=== PATIENT | male | born 1950 | race Caucasian/White ===

== ENCOUNTER → 2016-09-20 | Outpatient (CLI) | payer BC ==
[2016-09-20 17:52] LABS: CH 30.9; CHCM 35.1; HDW 2.74; HGB 15.8 gm/dL (13.0-17.5); MCV 88.4 fL (80.0-100.0); Mean Platelet Volume 7.3; RBC 5.09 m/uL (4.30-5.90); RDW 13.3 % (11.5-15.5); WBC 14.5 k/uL (3.8-10.6)
[2016-09-20 18:08] LABS: Anion Gap 12 mmol/L; Blood Urea Nitrogen 18 mg/dL (9-20); Carbon Dioxide 29 mmol/L (22-30); Chloride 102 mmol/L (98-107); Non-African American GFR(MDRD) >60 (>60 ml/min/1.73 sqM); Potassium 3.9 mmol/L (3.5-5.1); Sodium 143 mmol/L (137-145)
== END | disposition home or self-care (01) ==
LOC: LABPAT 17:22
PROVIDERS: ATTEND Internal Medicine Interventional Cardiology
DX: Z01.812 Encounter for preprocedural laboratory examination (principal); R07.9 Chest pain, unspecified
CPT/HCPCS: 80051; 82565; 84520; 85027

== ENCOUNTER 2016-09-22 09:33 | Day surgery (SDC) | payer BC ==
[2016-09-17 14:55] VITALS: BMI 30.9
[~2016-09-22 09:33] MED LIST: ALPRAZolam 0.25 MG TAB PO PRN; ALPRAZolam 0.5 MG TAB PO PRN; ASPIRIN 325 MG TAB PO STA; ATORVASTATIN 80 MG TAB PO STA; NITROGLYCERIN SL TABS 0.4 MG TAB SUBLINGUAL PRN; SODIUM CHLORIDE 0.9% 1,000 ML in EMPTY BAG 1 BAG IV ONE
[2016-09-22 10:11] VITALS: RESP 16; TEMP 98.1
[2016-09-22] MEDS ORDERED: VERAPAMIL 2.5 MG/ML 2 ML AMP ONE (10:38)
[2016-09-22] MEDS ORDERED: SODIUM CHLORIDE 0.9% (PF) 10 ML VIAL ONE (10:38)
[2016-09-22] MEDS ORDERED: LIDOCAINE 2% INJ 20 MG/ML (20 ML MDV) ONE (10:38)
[2016-09-22] MEDS ORDERED: HEPARIN SODIUM 1,000 UNIT/ML VIAL ONE (10:39)
[2016-09-22] MEDS ORDERED: MIDAZOLAM 2 MG/2 ML VIAL IV ONE (12:55)
[2016-09-22] MEDS ORDERED: LIDOCAINE 2% INJ 20 MG/ML SQ ONE (12:57)
[2016-09-22] MEDS: VERAPAMIL SYRINGE (5 MG/10 ML) INTRAARTER ONE ×2 (12:58→13:15)
[2016-09-22] MEDS ORDERED: HEPARIN SODIUM 1,000 UNIT/ML VIAL IV ONE (13:01)
[2016-09-22] MEDS ORDERED: IOHEXOL 350 MG/ML 100 ML BOTTLE INTRATHECA ONE (13:13)
[2016-09-22] MEDS ORDERED: RX INFO: IV CONTRAST WAS GIVEN 1 EACH MISC MISCELLANE PRN (13:24)
[2016-09-22] MEDS ORDERED: SODIUM CHLORIDE 0.9% 1,000 ML IV SCH (13:30)
--- NOTE | 2016-09-22 13:42 | CC ---
DATE OF SERVICE: 09/22/2016 PERFORMING PHYSICIAN: Jaime Cassidy, Hospital Cleaner. PROCEDURE PERFORMED: 1. Selective right and left coronary angiogram. 2. Left heart catheterization. INDICATION: This is a pleasant 66-year-old gentleman who was experiencing classical symptoms of angina. The decision was made toward heart catheterization. APPROACH: Right radial artery. COMPLICATIONS: None. LEVEL OF SEDATION: Moderate with a sedation length of 30 minutes. PROCEDURE DESCRIPTION: After obtaining an informed consent, the patient was brought to the Cardiac Rn Hemodialysis. Right radial artery was cannulated using micropuncture technique. The micropuncture wire passed easily, then I placed 6 Slovenian sheath in the right radial artery. Subsequently, I did selective right and left coronary angiogram using JR4 and JL 3.5 catheters. I did after that left heart catheterization using 6 Slovenian pigtail catheter. The procedure was completed without any complication. SELECTIVE CORONARY ANGIOGRAM: 1. The right coronary artery is a large-caliber vessel and it is a dominant vessel. It is angiographically normal and bifurcates distally into PDA and PLV branches; both are angiographically normal. 2. The left main is angiographically normal, it bifurcates into the left circumflex and left anterior descending artery. 3. The left circumflex is a large-caliber vessel and it is a nondominant vessel. The proximal left circumflex is angiographically normal and gives rise into the first OM branch, which is a large-caliber vessel, seems to be angiographically normal. The left circumflex continues after that as a small-caliber vessel in the AV groove. 4. Left anterior descending artery. The proximal left anterior descending artery is angiographically normal and gives rises into 2 diagonal branches; both are angiographically normally. The mid LAD is normal and ( ) in the myocardium. The LAD distally, seems to be angiographically normal. CONCLUSION: 1. Normal coronary angiogram. 2. Dominant right coronary system. Postprocedure management will be medical treatment.
--- NOTE | 2016-09-22 13:44 | LTR ---
September 22, 2016 RE: Reilly Salcido Dear Jason; Mr. Reilly Salcido underwent a heart catheterization today and that showed normal coronaries. I want to thank you for allowing me to participate in his care and please do not hesitate to call if you have any question or concern. Sincerely, LINDA FREY MD
[2016-09-22] MEDS ORDERED: hydrALAZINE HCL 20 MG/ML 1 ML VIAL ONE (14:07)
[2016-09-22] MEDS ORDERED: hydrALAZINE HCL 20 MG/ML 1 ML VIAL IVP STA (14:17)
[2016-09-22] MEDS ORDERED: CARVEDILOL 6.25 MG TAB PO STA (14:18)
[2016-09-22 16:51] VITALS: BP 145/84; PULSE 68
== END 2016-09-22 16:52 | disposition home or self-care (01) ==
LOC: CATHCVL 09:33
PROVIDERS: ATTEND Internal Medicine Interventional Cardiology
DX: R07.89 Other chest pain (principal); I10 Essential (primary) hypertension; E78.5 Hyperlipidemia, unspecified; Z79.899 Other long term (current) drug therapy
CPT/HCPCS: 93458; 99152; 99153; C1769 ×2; C1894; J2001; J2250; J0360; Q9967; J1644

== ENCOUNTER → 2017-06-04 | Outpatient (CLI) | payer MEDICARE | LOC: LABPAT 10:05 | PROVIDERS: ATTEND Surgery | DX: Z01.818 Encounter for other preprocedural examination (principal) | CPT/HCPCS: 36415; 86850; 86900; 86901; 93005 ==

== ENCOUNTER 2017-06-07 06:04 | Day surgery (SDC) | payer MEDICARE ==
[~2017-06-07 06:04] MED LIST changes: -ALPRAZolam 0.25 MG TAB PO PRN; -ALPRAZolam 0.5 MG TAB PO PRN; -ASPIRIN 325 MG TAB PO STA; -ATORVASTATIN 80 MG TAB PO STA; +DEXAMETHASONE SOD PHOSPHATE 10 MG/ML 1 ML VIAL IV ONE; +HEPARIN SODIUM,PORCINE 5,000 UNIT/ML 1 ML VIAL SQ ONE; +LACTATED RINGERS 1,000 ML IV SCH; +MIDAZOLAM 2 MG/2 ML VIAL IV PRN; -NITROGLYCERIN SL TABS 0.4 MG TAB SUBLINGUAL PRN; +ONDANSETRON 4 MG/2 ML VIAL IVP ONE; -SODIUM CHLORIDE 0.9% 1,000 ML in EMPTY BAG 1 BAG IV ONE; +ceFAZolin IN SWFI 2 GM/20 ML SYRINGE IVP ONE
[2017-06-07] MEDS ORDERED: LIDOCAINE 1% 20 ML VIAL (10MG/ML) FOR IV START INTRADERMA ONE (06:44)
--- NOTE | 2017-06-07 07:53 | P.GSHP ---
History of Present Illness H&P Date: 06/07/17 Chief Complaint: Incarcerated umbilical hernia This is a 67-year-old male referred from Dr. Jason Andrew. Patient has complaints of umbilical mass. He was seen [facility] found have incarcerated umbilical hernia. Past Medical History Past Medical History: Chest Pain / Angina, GERD/Reflux, Hyperlipidemia, Hypertension Additional Past Medical History / Comment(s): Sarcoidosis (IN REMISSION). "sometimes hard to urinate" History of Any Multi-Drug Resistant Organisms: None Reported Past Surgical History: Heart Catheterization Additional Past Surgical History / Comment(s): 09/22/16 HEART CATH (NEG).pain injections Past Anesthesia/Blood Transfusion Reactions: No Reported Reaction Additional Past Anesthesia/Blood Transfusion Reaction / Comment(s): never has had blood transfusion. NO GENERAL ANESTHESIA. Past Psychological History: No Psychological Hx Reported Smoking Status: Never smoker Past Alcohol Use History: Occasional Past Drug Use History: None Reported - Past Family History Mother Family Medical History: CVA/TIA, Hypertension Father Family Medical History: CVA/TIA, Hypertension Medications and Allergies Home Medications Medication Instructions Recorded Confirmed Type Atorvastatin Calcium [Lipitor] 10 mg PO DAILY 09/17/16 06/07/17 History Carvedilol [Coreg] 6.25 mg PO BID 09/17/16 06/07/17 History Omeprazole 40 mg PO DAILY PRN 09/17/16 06/07/17 History Pramipexole Di-HCl [Mirapex] 2 mg PO HS 09/17/16 06/07/17 History Tamsulosin HCl [Flomax] 0.4 mg PO DAILY 09/17/16 06/07/17 History Zolpidem [Ambien] 10 mg PO HS 09/17/16 06/07/17 History amLODIPine [Norvasc] 10 mg PO QAM 09/17/16 06/07/17 History Ibuprofen [Motrin] 800 mg PO Q8HR PRN 09/22/16 06/07/17 History Allergies Allergy/AdvReac Type Severity Reaction Status Date / Time azathioprine [From Imuran] Allergy shakiness Verified 06/07/17 06:38 Surgical - Exam Vital Signs Temp Pulse Resp BP Pulse Ox 97.1 F L 50 L 16 140/81 100 06/07/17 06:44 06/07/17 06:44 06/07/17 06:44 06/07/17 06:44 06/07/17 06:44 - General well developed, no distress - Eyes PERRL - ENT normal pinna - Neck no masses - Respiratory normal expansion - Cardiovascular Rhythm: regular - Abdomen Abdomen: soft, non tender Hernia: umbilical (5 cm incarcerated umbilical hernia) Assessment and Plan Assessment: Incarcerated umbilical hernia. We'll perform laparoscopic robotic system repair.
[2017-06-07] MEDS ORDERED: NEOSTIGMINE 1 MG/ML 10 ML VIAL ONE (07:57)
[2017-06-07] MEDS ORDERED: ROCURONIUM BROMIDE 10 MG/ML 10 ML VIAL IV ONE (07:57)
[2017-06-07] MEDS ORDERED: DEXAMETHASONE SOD PHOS (MDV) 100 MG/10 ML VIAL ONE (07:57)
[2017-06-07] MEDS ORDERED: PROPOFOL 10 MG/ML 20 ML VIAL IV ONE (07:57)
[2017-06-07] MEDS ORDERED: KETAMINE 10 MG/ML 20 ML VIAL ONE (07:57)
[2017-06-07] MEDS ORDERED: fentaNYL (PF) 50 MCG/ML 2 ML AMP ONE (07:57)
[2017-06-07] MEDS ORDERED: MIDAZOLAM 2 MG/2 ML VIAL ONE (07:57)
[2017-06-07] MEDS ORDERED: LIDOCAINE 1% INJ 10MG/ML (20 ML MDV) ONE (07:57)
[2017-06-07] MEDS ORDERED: SUCCINYLCHOLINE CHLORIDE 100 MG/5 ML SYR IV ONE (07:57)
[2017-06-07] MEDS ORDERED: GLYCOPYRROLATE 0.2 MG/ML 2 ML VIAL ONE (07:57)
[2017-06-07] MEDS ORDERED: KETOROLAC 30 MG/ML 1 ML VIAL ONE (07:57)
[2017-06-07] MEDS ORDERED: BUPIVACAINE-EPI 0.5%-1:200,000 10 ML VIAL SQ ONE ×2 (08:37)
[2017-06-07] MEDS ORDERED: LACTATED RINGERS 1,000 ML IV ONE ×2 (08:50→10:37)
--- NOTE | 2017-06-07 09:23 | P.OP ---
Date of Procedure: 06/07/17 Preoperative Diagnosis: Incarcerated umbilical hernia Postoperative Diagnosis: Incarcerated umbilical hernia Procedure(s) Performed: Laparoscopic robotic system repair of incarcerated umbilical hernia Anesthesia: SACHA Surgeon: Girma Mars Estimated Blood Loss (ml): 5 Pathology: other (Incarcerated fat) Condition: stable Disposition: PACU Description of Procedure: The patient's placed on the operative table in the supine position. He received general anesthesia. His abdomen was prepped and draped usual sterile fashion. The skin was incised left upper quadrant using a optical 5 mm blade less trocar under direct vision the peritoneal cavity is entered. After adequate insufflation a lap scope placed back the pleural cavity. Next a 8 mm robotic trochars placed in the left lower quadrant and a 12 mm trocar is placed in the left lateral position. The original 5 mm trocar was exchanged for an 8 mm trocar. The patient's placed left side up position the patient was then docked to the robot. The hernia was visualized. There was incarcerated fat within the hernia. The incarcerated fat was dissected free using hook cautery. The fascial defect was then closed using oh the lock suture. Next the repair was buttressed with ventral light ST mesh. This was secured with 2 OV lock suture. The patient was undocked the robot. The needles were withdrawn. The 12 mm trocar site was closed using a Eduardo Harvey suture passer and then the skin was closed interrupted 3-0 Monocryl suture. Dermabond was applied. Patient was sent to recovery and solution.
[2017-06-07 09:27] VITALS: TEMP 98.2
[2017-06-07] MEDS: HYDROmorphone 0.5 MG/0.5 ML SYRINGE IVP PRN ×2 (10:14→10:20)
[2017-06-07] MEDS ORDERED: HYDROcodone/APAP 7.5-325MG 1 EACH TAB PO ONE (10:28)
[2017-06-07 11:34] VITALS: BP 119/71; PULSE 56; RESP 18
== END 2017-06-07 11:48 | disposition home or self-care (01) ==
LOC: OR 06:04
PROVIDERS: ATTEND Surgery
DX: K42.0 Umbilical hernia with obstruction, without gangrene (principal); K21.9 Gastro-esophageal reflux disease without esophagitis; I10 Essential (primary) hypertension; E78.5 Hyperlipidemia, unspecified; I25.10 Atherosclerotic heart disease of native coronary artery without angina pectoris; D86.9 Sarcoidosis, unspecified; Z88.8 Allergy status to other drugs, medicaments and biological substances; Z79.899 Other long term (current) drug therapy; Z82.49 Family history of ischemic heart disease and other diseases of the circulatory system; Z82.3 Family history of stroke
CPT/HCPCS: 49653; 86900; 86901; 86850; 36415; C1781; J2250; J1644; J1100 ×2; J2710; J0690; J2405; J2001; J3010; J1885; J0330; J2704; J1170; 88302

== ENCOUNTER → 2017-09-08 | Outpatient (CLI) | payer MEDICARE ==
[2017-09-08 08:51] LABS: Cholesterol 197 mg/dL (<200); HDL Cholesterol 39 mg/dL (40-60); LDL Cholesterol,Calculated 122 mg/dL (0-99); Triglycerides 181 mg/dL (<150)
== END | disposition home or self-care (01) ==
LOC: LABWHC1 07:56
PROVIDERS: ATTEND Internal Medicine Interventional Cardiology
DX: E78.5 Hyperlipidemia, unspecified (principal)
CPT/HCPCS: 36415; 80061

== ENCOUNTER → 2018-02-23 | Outpatient (CLI) | payer MEDICARE ==
--- NOTE | 2018-02-23 11:47 | CONS ---
CONSULTATION DATE OF SERVICE: 02/23/2018 A 67-year-old gentleman who has been evaluated in the sleep center for possible obstructive sleep apnea-hypopnea syndrome. HISTORY OF PRESENT ILLNESS, SLEEP/WAKE EVALUATION: Patient usual sleep schedule from 11 p.m. to 6 a.m. He does have problems with falling asleep, taking sleeping pills at bedtime. He has has TV set in bedroom. He sleeps in different position by himself for the last 4 years. Previously, he has been told about snoring. At present he wakes up from sleep with nocturia 2 times. He has restless leg symptoms and possibly some movements at night. He is also on medications for restless legs. In the morning he wakes up tired, has problems with memory, concentration. [place] Sleepiness Scale significantly increased to 13. He may take naps during the day, often known. No history of hypnagogic hallucinations, sleep paralysis or cataplexy. PAST MEDICAL HISTORY: Positive for hypertension, hyperlipidemia, sarcoidosis of both lungs. PAST SURGICAL HISTORY: Hernia repair. MEDICATIONS: Hydrochlorothiazide, amlodipine, Lipitor, Ambien 10 mg at bedtime, Mirapex 1 mg at bedtime. SOCIAL HISTORY: Negative for smoking. Alcohol consumption occasional. REVIEW OF SYSTEMS: Awakenings from sleep, tiredness, sleepiness during the day. FAMILY HISTORY: Hypertension, hyperlipidemia, arthritis, lung problems, headaches, acid reflux, restless legs. PHYSICAL EXAM: A 67-year-old gentleman without distress. BP 119/74, HR 77, RR 16, height 5, 2-1/2, weight 180.2, BMI 32.3, temperature 98.2, oxygen saturation at room air 96%. OROPHARYNX: Extremely low position of soft palate, Mallampati 4. Neck 15.5 inches in circumference. ABDOMEN: Slightly obese. EXTREMITIES: 1+ ankle edema. Neck Supple, no JVD. Thyroid is not palpable. LUNGS Clear to percussion and to auscultation. Good air exchange. No wheezing or rhonchi. HEART S1, S2 regular. No murmurs, gallops, or rubs. DIRECTOR INDUSTRIAL Awake, alert, and oriented X3. Cranial nerves 2 to 7 intact. There is no fasciculation or atrophy. noted. No focal deficits observed. IMPRESSION: 1. Snoring, awakenings from sleep with nocturia 2 times, extremely low position of soft palate, excessive daytime sleepiness. [place] Sleepiness Scale is 13. Obstructive sleep apnea-hypopnea syndrome. 2. Mild obesity, body mass index of 32. 3. Hypertension. 4. History of old sarcoidosis of the lungs. 5. Hyperlipidemia. 6. Insomnia with difficulties to initiate sleep. 7. Restless legs syndrome. 8. Possible periodic limb movements. 9. Status post hernia repair. PLAN: 1. Polysomnography for evaluation of patient's breathing during the sleep and also to check for leg movements at night. 2. CPAP/BiPAP titration if sleep study confirms obstructive sleep apnea-hypopnea syndrome. 3. Preferable position during sleep on the side. 4. No driving if patient feels any sleepiness. 5. I will see patient for follow up visit to explain results of testing and following plan. Thank you for allowing me to participate in the management of your patient. Sincerely, Aneesh Hansen MD, PhD, FAASM Diplomat of [employer] [employer] Garment Sewer Hand of [facility] [place] MMODL / IJN: [id number] /
== END | disposition home or self-care (01) ==
LOC: SLEEP 10:07
PROVIDERS: ATTEND Internal Medicine
DX: G47.33 Obstructive sleep apnea (adult) (pediatric) (principal); E66.9 Obesity, unspecified; I10 Essential (primary) hypertension; E78.5 Hyperlipidemia, unspecified; G47.00 Insomnia, unspecified; G25.81 Restless legs syndrome; D86.9 Sarcoidosis, unspecified; Z98.890 Other specified postprocedural states; Z68.32 Body mass index [BMI] 32.0-32.9, adult; Z99.89 Dependence on other enabling machines and devices; Z79.899 Other long term (current) drug therapy
CPT/HCPCS: 99211

== ENCOUNTER → 2018-04-05 | Outpatient (CLI) | payer MEDICARE | END | disposition home or self-care (01) | LOC: LABWHC1 07:33 | PROVIDERS: ATTEND Family Medicine | DX: E53.8 Deficiency of other specified B group vitamins (principal) | CPT/HCPCS: 36415; 81291; 82746 ==

== ENCOUNTER → 2018-05-03 | Outpatient (CLI) | payer MEDICARE ==
[2018-05-03 08:03] LABS: ALT 26 U/L (21-72); AST 20 U/L (17-59); Cholesterol 114 mg/dL (<200); HDL Cholesterol 38 mg/dL (40-60); LDL Cholesterol,Calculated 52 mg/dL (0-99); Triglycerides 122 mg/dL (<150)
== END ==
LOC: LABWHC1 06:34
PROVIDERS: ATTEND Internal Medicine Interventional Cardiology
DX: E78.2 Mixed hyperlipidemia (principal)
CPT/HCPCS: 36415; 80061; 84450; 84460

== ENCOUNTER → 2018-07-26 | Outpatient (CLI) | payer MEDICARE ==
--- NOTE | 2018-07-26 11:58 | SFUN ---
SLEEP CENTER FOLLOW UP NOTE DATE OF SERVICE: 07/26/2018 A 68-year-old gentleman who has been followed in the Sleep Center for treatment of obstructive sleep apnea-hypopnea syndrome. Recently patient had diagnostic polysomnogram which showed severe sleep apnea and then he had CPAP titration. Subsequently, was started on treatment with CPAP. Today is his first visit after he received his CPAP unit. Patient is able to use CPAP equipment without significant problems related to mask fitting, pressure or humidification. I checked his CPAP machine, range of the pressure 9-13 cm of water. Average pressure 11.8 cm of water. Usage is 29/30 nights with 22/30 nights for more than 4 hours. Average usage 5.1 hour, leak 8 L/minutes which is normal range. Apnea-hypopnea index was 1.6, which is absolutely normal. [place] Sleepiness Scale today is 14. MEDICATIONS: Hydrochlorothiazide, amlodipine, Lipitor, Mirapex, Ambien. PHYSICAL EXAM: Patient in no distress, BP 123/73, HR 67, RR 14, weight 194.0, temp 97.8 cm. OROPHARYNX: Extremely low position of soft palate. ABDOMEN: Slightly obese. Neck Supple, no JVD. Thyroid is not palpable. LUNGS Clear to percussion and to auscultation. Good air exchange. No wheezing or rhonchi. HEART S1, S2 regular. No murmurs, gallops, or rubs. EXTREMITIES No clubbing or cyanosis. EQUAL EMPLOYMENT OPPORTUNITY OFFICER Awake, alert, and oriented X3. Cranial nerves 2 to 7 intact. There is no fasciculation or atrophy. noted. No focal deficits observed. IMPRESSION: 1. Severe obstructive sleep apnea-hypopnea syndrome; apnea-hypopnea index 60.1 with oxygen saturation of 76% on control with CPAP with average pressure 11.8 cm of water. Patient demonstrated good compliance with treatment benefitting from treatment. 2. Hypertension. 3. Obesity. 4. History of old lung sarcoidosis. 5. Hyperlipidemia. 6. History of restless legs syndrome. 7. Status post hernia repair. PLAN: 1. Patient will continue to use CPAP equipment every night for the whole night. 2. Sleep hygiene with regular time in bed for at least 7.5 - 8 hours. 3. Losing weight. 4. No driving if feeling sleepiness. Thank you very much for allowing me to participate in the management of your patient. Sincerely, Aneesh Hansen, MD, PhD, FAASM Diplomat of [employer] Medicine Auditing Clerk of [facility] [place] [facility]. .. MMRITIKA / ERNST: [id number] /
== END | disposition home or self-care (01) ==
LOC: SLEEP 10:53
PROVIDERS: ATTEND Internal Medicine
DX: G47.33 Obstructive sleep apnea (adult) (pediatric) (principal); I10 Essential (primary) hypertension; E66.9 Obesity, unspecified; E78.5 Hyperlipidemia, unspecified; Z86.69 Personal history of other diseases of the nervous system and sense organs; Z87.09 Personal history of other diseases of the respiratory system; Z99.89 Dependence on other enabling machines and devices; Z98.890 Other specified postprocedural states; Z79.899 Other long term (current) drug therapy

== ENCOUNTER → 2018-09-12 | Outpatient (CLI) | payer MEDICARE ==
[2018-09-12 17:02] LABS: Anion Gap 9.8 mmol/L (4.00-12.00); Calcium 8.8 mg/dL (8.7-10.3); Carbon Dioxide 28.2 mmol/L (21.6-31.8); Potassium 3.8 mmol/L (3.5-5.5)
== END | disposition home or self-care (01) ==
LOC: LABWHC1 07:47
PROVIDERS: ATTEND Internal Medicine Interventional Cardiology
DX: N18.9 Chronic kidney disease, unspecified (principal)
CPT/HCPCS: 36415; 80048

== ENCOUNTER → 2019-01-25 | Outpatient (CLI) | payer MEDICARE ==
--- NOTE | 2019-01-25 11:09 | SFUN ---
SLEEP CENTER FOLLOW UP NOTE A 68-year-old gentleman who has been followed in the Sleep Center for treatment of obstructive sleep apnea-hypopnea syndrome. Last time I saw patient in July of 2018. Since that time patient used the machine every night, but for the last months developed some problem with breathing while he is using his CPAP equipment and he was not able to use machine for most of the time over the last months. [place] Sleepiness Scale today is 18. I checked CPAP unit and compared with the results of the reading from July of 2018. Range of the pressure is the same 9-13 cm of water. Average pressure 11.6. During last visit, it was 11.8. Average usage 4 hours. Leak is 10 L/minute which is normal range, last time it was 8 L/minute. Apnea-hypopnea index was only 1.7 during last is during last visit it was 1.6, so no significant changes in results of reading from the machine. Ramp is automatic, started from the pressure of 5 cm of water. EPR at the level of 3 which is maximal which really is pressure during expiration. MEDICATIONS: Hydrochlorothiazide, hydralazine, tamsulosin, Lasix, atorvastatin, Ambien, Mirapex. PHYSICAL EXAM: Patient in no distress. BP 129/76, HR 72, RR 16, height 5, 2, weight 192 pounds which is 2 pounds less than during the previous visit, temperature 98.3, oxygen saturation at room air 97%. OROPHARYNX: Extremely low soft palate. ABDOMEN: Obese. Neck Supple, no JVD. Thyroid is not palpable. LUNGS Clear to percussion and to auscultation. Good air exchange. No wheezing or rhonchi. HEART S1, S2 regular. No murmurs, gallops, or rubs. EXTREMITIES No clubbing or cyanosis. ASSISTANT PROFESSOR Awake, alert, and oriented X3. Cranial nerves 2 to 7 intact. There is no fasciculation or atrophy. noted. No focal deficits observed. IMPRESSION: 1. Severe obstructive sleep apnea-hypopnea syndrome; apnea-hypopnea index 60.1 with oxygen desaturation to 76%. Reading from the machine showed normal respiration on treatment. 2. Hypertension. 3. Obesity. 4. History of sarcoidosis of the lungs. 5. Hyperlipidemia. 6. History of restless legs syndrome. 7. Status post hernia repair. PLAN: 1. I will change ramp time to 45 minutes and I will teach patient how to just ramp time to. 2. I will decrease the range of the pressure from 7-13 instead of 9-13. 3. I will teach patient how to adjust humidity. 4. Patient to continue to use CPAP equipment every night for the whole night. 5. Losing weight. 6. No driving if feeling sleepiness. Thank you very much for allowing me to participate in the management of your patient Sincerely, Aneesh Hansen MD, PhD, FAASM Diplomat of [employer] Internal Medicine Guide Alpine of [facility] [place] MMODL / IJN: [id number] /
== END ==
LOC: SLEEP 09:50
PROVIDERS: ATTEND Internal Medicine
DX: G47.33 Obstructive sleep apnea (adult) (pediatric) (principal); I10 Essential (primary) hypertension; E66.9 Obesity, unspecified; E78.5 Hyperlipidemia, unspecified; G25.81 Restless legs syndrome; Z98.890 Other specified postprocedural states; Z99.89 Dependence on other enabling machines and devices; Z87.09 Personal history of other diseases of the respiratory system; Z79.899 Other long term (current) drug therapy

== ENCOUNTER → 2019-03-20 | Outpatient (CLI) | payer MEDICARE ==
[2019-03-20 17:33] LABS: African American GFR (CKD) 65.9 (60.0-200.0); Anion Gap 9.2 mmol/L (4.00-12.00); BUN/Creat Ratio 23.85 Ratio (12.00-20.00); Calcium 9.3 mg/dL (8.7-10.3); Carbon Dioxide 32.8 mmol/L (21.6-31.8); Magnesium 2.2 mg/dL (1.5-2.4); Potassium 2.9 mmol/L (3.5-5.5)
== END | disposition home or self-care (01) ==
LOC: LABWHC1 09:15
PROVIDERS: ATTEND Nurse Practitioner Adult Health
DX: I10 Essential (primary) hypertension (principal)
CPT/HCPCS: 36415; 80048; 83735

== ENCOUNTER → 2019-05-23 | Outpatient (CLI) | payer MEDICARE | END | disposition home or self-care (01) | LOC: LABWHC1 07:48 | PROVIDERS: ATTEND Internal Medicine Critical Care Medicine | DX: R05 Cough (principal) | CPT/HCPCS: 36415; 82785 ==

== ENCOUNTER → 2019-05-31 | Outpatient (CLI) | payer MEDICARE ==
--- NOTE | 2019-05-31 10:34 | CT ---
EXAMINATION TYPE: CT chest w con DATE OF EXAM: 05/31/2019 COMPARISON: 08/15/2014 HISTORY: Cough CT DLP: 430.8 mGycm Automated exposure control for dose reduction was used. CONTRAST: CT scan of the chest is performed with IV Contrast, patient injected with 100 mL of Isovue 300. FINDINGS: LUNGS: Emphysematous changes are noted areas of subsegmental consolidation are most typical atelectas is. There are multiple calcified nodules within the lung compatible granuloma no evidence pleural eff usion or pneumothorax. Very mild interlobular septal thickening suggest a degree of chronic interstit ial lung disease. MEDIASTINUM: There is mediastinal adenopathy including the right paratracheal space and subcarinal re gion with the largest lymph node measuring short axis of 1.1 cm. There is a lymph node in the right h ilum measuring short axis of 1.1 cm compatible with lymphadenopathy Shotty adenopathy in the left hil um is noted . Aorta of normal caliber. There is mild atherosclerotic changes of the coronary arteries . OTHER: Liver is slightly reduced in attenuation correlate for hepatic steatosis. Hypertrophic and de generative changes of vertebral column are noted. IMPRESSION: 1. COPD with changes of mediastinal and right hilar adenopathy. This would be compatible with the pat ient's history of sarcoidosis. Largest short axis measurement is 1.1 cm. 2. Stable calcified nodules compatible with granulomatous disease.
== END | disposition home or self-care (01) ==
LOC: RADCTMAIN 07:30
PROVIDERS: ATTEND Internal Medicine Critical Care Medicine
DX: J44.9 Chronic obstructive pulmonary disease, unspecified (principal); R59.0 Localized enlarged lymph nodes; R05 Cough
CPT/HCPCS: 82565; 84520; 71260; 36415; Q9967

== ENCOUNTER → 2019-06-18 | Outpatient (CLI) | payer MEDICARE ==
[2019-06-18 20:55] LABS: T4, Free (Free Thyroxine) 1.3 ng/dL (0.80-1.80)
[2019-06-18 22:33] LABS: Hemoglobin A1C 5.9 % (4.0-6.0)
== END | disposition home or self-care (01) ==
LOC: LABWHC1 11:51
PROVIDERS: ATTEND Nurse Practitioner Adult Health
DX: E11.9 Type 2 diabetes mellitus without complications (principal)
CPT/HCPCS: 36415; 83036; 84439; 84443

== ENCOUNTER → 2019-08-02 | Outpatient (CLI) | payer MEDICARE ==
--- NOTE | 2019-08-02 11:45 | SFUN ---
SLEEP CENTER FOLLOW UP NOTE DATE OF SERVICE: 08/02/2019 A 69-year-old gentleman who has been followed in the Sleep Center for treatment of obstructive sleep apnea-hypopnea syndrome. Patient continued to use his CPAP equipment, does not have any problem related to the pressure, sometimes may have some discomfort in the throat after using CPAP equipment. [place] Sleepiness Scale increased to 17. His sleep schedule from 10 - 11 p.m. until 6 am, usually he does not take any naps. I checked his CPAP unit, range of the pressure 7-13, average pressure is 11.8 cm of water, average usage per night 4.4 hours, leak 5 L/minute, which is perfect. Apnea-hypopnea index 1.8 which is perfect. MEDICATIONS: Hydralazine, hydrochlorothiazide, tamsulosin, Lasix, atorvastatin, Ambien, Mirapex. PHYSICAL EXAM: Patient in no distress. BP 127/65, HR 70, RR 16, height 5, 2, weight 195, which is 3 pounds more than during the previous visit, body mass index 35.6, temperature 97.7, oxygen saturation at room air 98%. OROPHARYNX: Extremely low position of soft palate, Mallampati 4. ABDOMEN: Slightly obese. NECK: Supple, no JVD. Thyroid is not palpable. LUNGS: Clear to percussion and to auscultation. Good air exchange. No wheezing or rhonchi. HEART: S1, S2 regular. No murmurs, gallops, or rubs. EXTREMITIES: No clubbing or cyanosis. CENTRAL SUPPLY CLERK: Awake, alert, and oriented X3. Cranial nerves 2 to 7 intact. There is no fasciculation or atrophy. noted. No focal deficits observed. IMPRESSION: 1. Severe obstructive sleep apnea-hypopnea syndrome, apnea-hypopnea index 60.1. On full control with CPAP. Patient benefitting from treatment. 2. History of restless legs syndrome. 3. Hypertension. 4. Obesity. 5. Hyperlipidemia. 6. Status post hernia repair. PLAN: 1. Continue treatment with CPAP with the same regimen as it is now. 2. I will again explain to patient how to adjust humidity, may be possibly humidity is not enough. 3. Losing weight. 4. No driving if feeling sleepiness. 5. I will maintain all necessary prescriptions for CPAP supplies including mask, tube, filter. Patient is using a Mirage FX nasal mask and heated tube. Thank you very much for allowing me to participate in the management of your patient. Sincerely, Aneesh Hansen MD, PhD, FAASM Diplomat of [place] [employer] [employer] Enterprise Integration Developer of [facility] [place] MMRITIKA / KAIN: [id number] /
== END | disposition home or self-care (01) ==
LOC: SLEEP 09:58
PROVIDERS: ATTEND Internal Medicine
DX: G47.33 Obstructive sleep apnea (adult) (pediatric) (principal); G25.81 Restless legs syndrome; I10 Essential (primary) hypertension; E66.9 Obesity, unspecified; E78.5 Hyperlipidemia, unspecified; Z98.890 Other specified postprocedural states; Z79.891 Long term (current) use of opiate analgesic; Z79.899 Other long term (current) drug therapy; Z99.89 Dependence on other enabling machines and devices

== ENCOUNTER 2019-08-15 10:50 | Day surgery (SDC) | payer MEDICARE ==
[2019-08-13 15:47] VITALS: BMI 33.5
[~2019-08-15 10:50] MED LIST changes: +ALBUTEROL NEB (CONC) 2.5 MG/0.5 ML INHALATION ONE; -DEXAMETHASONE SOD PHOSPHATE 10 MG/ML 1 ML VIAL IV ONE; -HEPARIN SODIUM,PORCINE 5,000 UNIT/ML 1 ML VIAL SQ ONE; +LIDOCAINE 1% (10MG/ML) FOR IV START INTRADERMA PRN; +LIDOCAINE 2% (PF) 20 MG/ML 5 ML VIAL INHALATION ONE; +LIDOCAINE VISCOUS 300 MG/15 ML CUP MUCOUS MEM ONE; -MIDAZOLAM 2 MG/2 ML VIAL IV PRN; -ONDANSETRON 4 MG/2 ML VIAL IVP ONE; +SODIUM CHLORIDE 0.9% 1,000 ML IV SCH; -ceFAZolin IN SWFI 2 GM/20 ML SYRINGE IVP ONE
[2019-08-15 11:43] LABS: Glucose,Whole Blood 113 mg/dL (75-99)
[2019-08-15 11:44] VITALS: TEMP 98
[2019-08-15] MEDS ORDERED: PROPOFOL 10 MG/ML 20 ML VIAL IV ONE (13:39)
[2019-08-15] MEDS ORDERED: LIDOCAINE 1% INJ 10MG/ML (20 ML MDV) ONE (13:39)
[2019-08-15] MEDS ORDERED: GLYCOPYRROLATE 0.2 MG/ML 2 ML VIAL ONE (13:39)
[2019-08-15] MEDS ORDERED: fentaNYL (PF) 50 MCG/ML 2 ML AMP ONE (13:39)
--- NOTE | 2019-08-15 14:11 | P.PCN ---
Date of Procedure: 08/15/19 Preoperative Diagnosis: Chronic cough Postoperative Diagnosis: 1 tracheobronchomalacia 2 obstructive sleep apnea 3 loose respiratory secretions, no endobronchial tumors or lesions, mild mucosal inflammatory changes throughout the airways, bronchioloalveolar lavage of the lingula. Procedure(s) Performed: Flexible bronchoscopy, BAL of the lingula Anesthesia: PRAVEEN Surgeon: Tevin Penn Estimated Blood Loss (ml): 0 IV fluids (ml): 0 Pathology: other Condition: stable Disposition: same day Operative Findings: This procedure was done in the endoscopy suite. This was done under controlled sedation. Anesthetic agents was being administered by anesthesia the bedside. After achieving adequate sedation the flexible bronchoscope was introduced through the right nostril was advanced into the upper airways. Examination of the posterior pharynx and then the larynx and acidosis and the vocal cords and arytenoids was done. There was significant airway collapsibility of the pharyngeal wall/laryngeal wall consistent with obstructive sleep apnea knowing that this was a dynamic obstruction under the effect of conscious sedation. The epiglottis was sharp and within normal limits. The arytenoids were within normal limits. The cords were symmetric and and there was normal abduction and adduction. A total of 2 mL of 1% lidocaine was applied to the vocal cords and following that the bronchoscope was advanced to the upper trachea. There was collapsibility of the membranous trachea consistent with tracheomalacia there was mild to moderate in severity. Similarly, there was bronchomalacia noted throughout the patient's airways which was again mild to moderate in severity. The airway was not completely collapsing with extubation and coughing. There was some looseness for secretions were suctioned out. Airway inspection was completed. The visualized airways including the entire trachea, right mainstem bronchus, left mainstem bronchus, right upper lobe bronchus, bronchus intermedius and right middle lobe bronchus at lower lobe bro nchus left upper lobe bronchus and left lower lobe bronchus. The airways were patent within normal limits. There was no relation as noted in the radius segmental branches. The opening of the right middle lobe was a bit narrowed previous was patent and I was able to push the bronchoscope and and visualized the area and the lateral segments. This appears segment of the right lower lobe orifice was also somewhat narrowed. This was patent and the bronchoscope was placed in and visualized. Examination of the left side was within normal limits. The bronchoscope was then moved to the lingula and the bronchioloalveolar lavage was done. A total of 60 mL of fluid was infused in the lingula and 20 mL was suctioned back. Aspirate was turbid nonbloody. The bronchial mucosa at times was becoming inflamed and irritated. No other bronchial tumors. No polyps and no lesions. No foreign bodies. Bronchoscope was removed. The patient did encounter some cough following removal of the bronchoscope. Nevertheless is subsided. No complications related to the procedure. He did encounter snoring under the effect of sedation and the patient has underlying obstructive sleep apnea as stated. The lavage from the lingula will be sent for microbial analysis. We'll continue to follow.
[2019-08-15 14:16] VITALS: RESP 16
[2019-08-15 14:41] VITALS: BP 148/82; PULSE 61
== END 2019-08-15 14:52 | disposition home or self-care (01) ==
LOC: ORWHC2ENDO 10:50
PROVIDERS: ATTEND Internal Medicine Critical Care Medicine
DX: J39.8 Other specified diseases of upper respiratory tract (principal); G47.33 Obstructive sleep apnea (adult) (pediatric); I10 Essential (primary) hypertension; E78.5 Hyperlipidemia, unspecified; R73.9 Hyperglycemia, unspecified; D86.9 Sarcoidosis, unspecified; N40.0 Benign prostatic hyperplasia without lower urinary tract symptoms; K21.9 Gastro-esophageal reflux disease without esophagitis; Z88.8 Allergy status to other drugs, medicaments and biological substances; Z79.899 Other long term (current) drug therapy; Z79.51 Long term (current) use of inhaled steroids; Z82.49 Family history of ischemic heart disease and other diseases of the circulatory system
CPT/HCPCS: 31624; 94640; 87798 ×3; 87496; 87498; 87529; 84132; 87252; 87502; 87634; 87070; 87205; 87116; 87102; 87206; J2001 ×2; J3010; J2704

== ENCOUNTER → 2019-08-28 | Outpatient (CLI) | payer MEDICARE ==
--- NOTE | 2019-08-28 13:34 | MR ---
EXAMINATION TYPE: MR lumbar spine wo con DATE OF EXAM: 08/28/2019 1:22 PM COMPARISON: NONE HISTORY: Low back pain Multiplanar, MultiSpin echo imaging of the lumbar spine was performed. L1-L2: Moderate disc desiccation. Circumferential disc bulge greatest posteriorly with annular tear. Effacement ventral thecal sac with some mild central stenosis. L2-L3: Moderate disc desiccation with circumferential disc bulge greatest posteriorly. Mild central s tenosis identified. Bilateral foraminal encroachment. L3-L4: Moderate disc desiccation with circumferential disc bulge greatest posteriorly. Severe central stenosis identified. Bilateral foraminal encroachment. L4-L5: Moderate disc desiccation with circumferential disc bulge greatest posteriorly. Severe central stenosis identified. Bilateral foraminal encroachment. L5-S1: Normal disc appearance without desiccation. No herniation, protrusion or disc bulging. No ca nal stenosis is present. Foramina are patent bilaterally. Lumbar segments are intact. No paraspinal masses are identified. Conus medullaris has a normal appe arance. Scattered ventral spondylosis identified. IMPRESSION: 1. Multilevel degenerative disc disease with multilevel central stenosis.
== END | disposition home or self-care (01) ==
LOC: RADMRIMAIN 12:45
PROVIDERS: ATTEND Physician Assistant
DX: M48.061 Spinal stenosis, lumbar region without neurogenic claudication (principal); M51.16 Intervertebral disc disorders with radiculopathy, lumbar region
CPT/HCPCS: 72148

== ENCOUNTER → 2020-04-09 | Outpatient (CLI) | payer MEDICARE ==
--- NOTE | 2020-04-09 08:48 | MR ---
EXAMINATION TYPE: MR knee RT wo con DATE OF EXAM: 04/09/2020 COMPARISON: Plain film 03/14/2020 HISTORY: R knee pain TECHNIQUE: Multiplanar, multisequence imaging of the right knee is performed without IV contrast. FINDINGS: MEDIAL MENISCUS: The posterior horn of the medial meniscus is attenuated. There is some irregular nelly ear increased signal at the inferior margin seen on sagittal image #11 as well as some abnormal intri nsic signal which may be cystic-like suggesting chronic tear. LATERAL MENISCUS: Similar undersurface irregular signal noted on sagittal image 25 at the posterior h orn of the lateral meniscus, difficult to exclude a small tear CRUCIATE LIGAMENTS: The anterior and posterior cruciate ligaments are intact and unremarkable. COLLATERAL LIGAMENTS: The medial collateral ligament and lateral collateral ligament complex are inta ct and unremarkable. EXTENSOR MECHANISM: Visualized quadriceps and patellar tendons are intact. EFFUSION: Suprapatellar joint effusion is noted POPLITEAL CYST: No popliteal/ob cyst. TRICOMPARTMENT SPACES: Joint space loss is present especially in the medial compartment CARTILAGE: Grade IV chondromalacia present in the medial compartment, grade 2 to grade III chondromal acia posterior patella BONE MARROW SIGNAL: Subchondral geode formation present in the medial femoral condyle, proximal tibia medial compartment OTHER: There is subcutaneous edema. IMPRESSION: Osteoarthritis. 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
== END | disposition home or self-care (01) ==
LOC: RADMRIMAIN 06:33
PROVIDERS: ATTEND Orthopaedic Surgery
DX: M17.11 Unilateral primary osteoarthritis, right knee (principal)

== ENCOUNTER → 2020-06-05 | Outpatient (CLI) | payer MEDICARE ==
[2020-06-05 09:17] LABS: Basophils # (A) 0.1 k/uL (0-0.2); Basophils % (A) 1 %; Eosinophils # (A) 0.2 k/uL (0-0.7); Eosinophils % (A) 2 %; HCT 44.1 % (39.0-53.0); HGB 14.8 gm/dL (13.0-17.5); Lymphocytes # (A) 1.6 k/uL (1.0-4.8); Lymphocytes % (A) 15 %; MCH 30.1 pg (25.0-35.0); MCHC 33.6 g/dL (31.0-37.0); MCV 89.5 fL (80.0-100.0); Mean Platelet Volume 6.7; Monocytes # (A) 0.6 k/uL (0-1.0); Monocytes % (A) 5 %; Neutrophils # (A) 8.2 k/uL (1.3-7.7); Neutrophils % (A) 76 %; Platelet Count 239 k/uL (150-450); RBC 4.93 m/uL (4.30-5.90); WBC 10.8 k/uL (3.8-10.6)
[2020-06-05 09:37] LABS: Potassium 3.6 mmol/L (3.5-5.1)
== END | disposition home or self-care (01) ==
LOC: LABPAT 08:09
PROVIDERS: ATTEND Orthopaedic Surgery
DX: Z01.818 Encounter for other preprocedural examination (principal); M23.91 Unspecified internal derangement of right knee
CPT/HCPCS: 80051; 85025

== ENCOUNTER 2020-06-11 07:48 | Day surgery (SDC) | payer MEDICARE ==
[2020-06-06 15:12] VITALS: BMI 32.9
--- NOTE | 2020-06-10 15:23 | HP ---
HISTORY AND PHYSICAL DATE OF SURGERY: 06/11/2020. Reilly Salcido is a 70-year-old gentleman seen with progressive right knee pain. We discussed options for treatment, he elected to proceed with right knee arthroscopy. Consent was obtained. PAST MEDICAL HISTORY: Hypertension. PAST SURGICAL HISTORY: Herniorrhaphy. DAILY MEDICATIONS: Hydralazine, hydrochlorothiazide. ALLERGIES: IMURAN. SOCIAL HISTORY: Denies tobacco use. PHYSICAL EVALUATION OF THE RIGHT KNEE: Range of motion 0-130. Mild effusion. Tenderness medial joint line. Positive medial Martin's. Ligaments stable. Hip rotation without pain. Distal neurovascular exam intact. RADIOGRAPHS: Right knee revealed moderate to severe medial compartment and mild patellofemoral compartment osteoarthritis. A right knee MRI revealed medial meniscal tear and osteoarthritic changes. IMPRESSION: 1. Internal derangement, right knee with medial meniscal tear. 2. Right knee osteoarthritis. 3. Hypertension. PLAN: Right knee arthroscopy with partial meniscectomy and partial synovectomy and debridement. MMODL / IJN: [id number] /
[~2020-06-11 07:48] MED LIST changes: -ALBUTEROL NEB (CONC) 2.5 MG/0.5 ML INHALATION ONE; +HYDROmorphone 0.5 MG/0.5 ML SYRINGE IVP PRN; -LIDOCAINE 1% (10MG/ML) FOR IV START INTRADERMA PRN; -LIDOCAINE 2% (PF) 20 MG/ML 5 ML VIAL INHALATION ONE; -LIDOCAINE VISCOUS 300 MG/15 ML CUP MUCOUS MEM ONE; +MIDAZOLAM 2 MG/2 ML VIAL IV PRN; +ONDANSETRON 4 MG/2 ML VIAL IVP PRN; -SODIUM CHLORIDE 0.9% 1,000 ML IV SCH; +fentaNYL (PF) 50 MCG/ML 2 ML AMP IV PRN
[2020-06-11 08:08] VITALS: TEMP 97.7
[2020-06-11] MEDS ORDERED: LIDOCAINE 1% (10MG/ML) FOR IV START INTRADERMA ONE (08:23)
[2020-06-11] MEDS ORDERED: ONDANSETRON 4 MG/2 ML VIAL IVP ONE (08:25)
[2020-06-11] MEDS ORDERED: DEXAMETHASONE SOD PHOSPHATE 4 MG/ML 1 ML VIAL IV ONE (08:26)
[2020-06-11] MEDS ORDERED: ONDANSETRON 4 MG/2 ML VIAL ONE (08:29)
[2020-06-11 08:44] LABS: Glucose,Whole Blood 121 mg/dL (75-99)
[2020-06-11] MEDS ORDERED: PROPOFOL 10 MG/ML 20 ML VIAL IV ONE (09:34)
[2020-06-11] MEDS ORDERED: LIDOCAINE 1% INJ 10MG/ML (20 ML MDV) ONE (09:34)
[2020-06-11] MEDS ORDERED: MIDAZOLAM 2 MG/2 ML VIAL ONE (09:34)
[2020-06-11] MEDS ORDERED: SUCCINYLCHOLINE CHLORIDE 100 MG/5 ML SYR IV ONE (09:34)
[2020-06-11] MEDS ORDERED: fentaNYL (PF) 50 MCG/ML 2 ML AMP ONE (09:34)
[2020-06-11] MEDS ORDERED: BUPIVACAINE (PF) 0.25% 30 ML VIAL SQ ONE ×2 (09:44→10:12)
--- NOTE | 2020-06-11 10:26 | P.OP ---
Date of Procedure: 06/11/20 Preoperative Diagnosis: Internal derangement right knee Postoperative Diagnosis: 1. Tear medial meniscus right knee 2. Grade 3 chondromalacia medial femoral condyle right knee 3. Grade 4 chondromalacia medial tibial plateau right knee 4. Reactive synovitis medial, lateral and suprapatellar compartments right knee Procedure(s) Performed: 1. Arthroscopic partial medial meniscectomy right knee 2. Arthroscopic chondroplasty medial femoral condyle right knee 3. Arthroscopic partial synovectomy medial, lateral and suprapatellar compartments right knee Anesthesia: ALEJANDROA, local Surgeon: Yoseph Sanchez Estimated Blood Loss (ml): 7 Pathology: none sent Condition: stable Disposition: PACU Indications for Procedure: 70-year-old gentleman seen with progressive right knee pain. After treatment options were discussed with him, he elected to proceed with arthroscopy. Operative Findings: See description of procedure Description of Procedure: Patient was taken to the operative suite. Patient underwent a general anesth etic by the department of anesthesia. Patient was given preoperative antibiotics. The right lower extremity was placed in a well-padded arthroscopic leg reis. The right leg was prepped and draped in the normal sterile orthopedic fashion. A lateral parapatellar and suprapatellar incision was made. Trochars were inserted. Arthroscopy was initiated. Suprapatellar pouch revealed diffuse thick reactive synovitis. The patellofemoral joint appeared to articulate congruently. There was grade 2 chondromalacia of the patellofemoral joint without osteochondral flap tears. The scope was guided into the medial gutter. No loose bodies or plica were identified. The scope was then guided into the medial compartment. A medial parapatellar incision was made. Trocar inserted followed by probe. There was a complex tear medial meniscus involving the posterior horn and midbody area. There were grade 4 chondromalacia changes of the medial tibial plateau with a large area of exposed bone. There were diffuse grade 3 chondromalacia changes of the medial femoral condyle diffuse osteochondral flap tears and a small area posterior weightbearing surface of grade 4 chondromalacia with exposed bone as well. There was thick reactive synovitis anteriorly. I performed a partial medial meniscectomy getting down to stable meniscal tissue. I performed a chondroplasty of the medial femoral cond yle getting down to stable osteochondral tissue. I performed a partial synovectomy decompressing the reactive synovitis. The residual meniscus was stable. The residual osteochondral surface was stable. There was good decompression of the synovitis. Scope and probe were then guided into the intercondylar notch. Cruciates were identified, probed and found to be stable. The scope and probe were then guided into lateral compartment. Lateral meniscus reveals some superficial fraying. There were grade 2 chondromalacia changes lateral compartment with no osteochondral tears. There was thick reactive synovitis anteriorly. I debrided the superficial fraying of the lateral meniscus with a motorized shaver. I now performed a partial synovectomy decompressing reactive synovitis. There was good decompression of the synovitis. The scope was in guided back into the suprapatellar compartment. The before meals motorize shaver into the suprapatellar compartment. I debrided some piecemeal fragments of meniscus I encountered. I performed a partial synovectomy decompressing reactive synovitis. Shaver was removed. I now took one more look around the entire knee, no residual debris. Instruments were now removed from the joint. The joint was infiltrated with .25% Marcaine. Steri- Strips were applied to the portal sites. Sterile dressings were applied. The patient was placed into a TIEN hose. No tourniquet was utilized. The patient was awakened, transferred to a bed and taken to recovery stable satisfactory condition.
[2020-06-11 11:31] VITALS: RESP 20
[2020-06-11 12:34] VITALS: BP 138/76; PULSE 68
== END 2020-06-11 12:37 | disposition home or self-care (01) ==
LOC: OR 07:48
PROVIDERS: ATTEND Orthopaedic Surgery
DX: M23.221 Derangement of posterior horn of medial meniscus due to old tear or injury, right knee (principal); M94.261 Chondromalacia, right knee; M65.861 Other synovitis and tenosynovitis, right lower leg; M17.11 Unilateral primary osteoarthritis, right knee; I10 Essential (primary) hypertension; G47.33 Obstructive sleep apnea (adult) (pediatric); D86.9 Sarcoidosis, unspecified; Z79.899 Other long term (current) drug therapy; Z98.890 Other specified postprocedural states; Z88.8 Allergy status to other drugs, medicaments and biological substances
CPT/HCPCS: 29881; J2250; J1100; J0690; J2405; J2001; J3010; J0330; J2704

== ENCOUNTER → 2020-07-09 | Outpatient (CLI) | payer MEDICARE ==
[2020-07-09 12:11] LABS: Basophils # (A) 0.1 k/uL (0-0.2); Basophils % (A) 1 %; Eosinophils # (A) 0.2 k/uL (0-0.7); Eosinophils % (A) 2 %; HCT 45.3 % (39.0-53.0); HGB 15.4 gm/dL (13.0-17.5); Lymphocytes # (A) 2.3 k/uL (1.0-4.8); Lymphocytes % (A) 17 %; MCH 30.4 pg (25.0-35.0); MCV 89.5 fL (80.0-100.0); Mean Platelet Volume 6.4; Monocytes # (A) 0.5 k/uL (0-1.0); Monocytes % (A) 4 %; Neutrophils # (A) 10.1 k/uL (1.3-7.7); Neutrophils % (A) 76 %; Platelet Count 200 k/uL (150-450); RBC 5.06 m/uL (4.30-5.90); RDW 12.9 % (11.5-15.5); WBC 13.3 k/uL (3.8-10.6)
[2020-07-09 12:31] LABS: Appearance,Urine Clear (Clear); Bilirubin,Urine Negative (Negative); Blood,Urine Negative (Negative); Color,Urine Light Yellow; Glucose,Urine (UA) Negative (Negative); Ketones,Urine Negative (Negative); Leukocyte Esterase,Urine Negative (Negative); Nitrite,Urine Negative (Negative); PH, Urine 6.5 (5.0-8.0); Protein,Urine Negative (Negative); Specific Gravity,Urine 1.012 (1.001-1.035); Urobilinogen,Urine <2.0 mg/dL (<2.0)
[2020-07-09 19:06] LABS: African American GFR (CKD) 89.2 (60.0-200.0); Albumin 4.5 g/dL (3.80-4.90); Albumin/Globulin Ratio 1.96 (1.60-3.17); Anion Gap 8.4 mmol/L (4.00-12.00); Calcium 9.4 mg/dL (8.7-10.3); Carbon Dioxide 30.6 mmol/L (21.6-31.8); Globulin 2.3 g/dL (1.6-3.3); Potassium 3.7 mmol/L (3.5-5.5); Total Bilirubin 0.5 mg/dL (0.3-1.2); Total Protein 6.8 g/dL (6.2-8.2)
[2020-07-09 23:42] LABS: INR 0.98 (0.90-1.11); Prothrombin Time 10.6 sec (9.9-11.9)
[2020-07-10 00:08] LABS: Hemoglobin A1C 6.1 % (4.0-6.0)
== END | disposition home or self-care (01) ==
LOC: LABWHC1 11:19
PROVIDERS: ATTEND Orthopaedic Surgery
DX: Z01.818 Encounter for other preprocedural examination (principal)
CPT/HCPCS: 36415; 80053; 81003; 83036; 85025; 85610; 85730; 86850; 86900; 86901; 87070; 87086

== ENCOUNTER 2020-09-04 13:12 | Emergency (ER) | payer MEDICARE ==
[2020-09-04 13:20] VITALS: TEMP 99.2
[2020-09-04] MEDS ORDERED: SODIUM CHLORIDE 0.9% 500 ML 500 ML IV ONE (13:59)
--- NOTE | 2020-09-04 14:35 | ED ---
General Adult HPI - General Chief complaint: Altered Mental Status Stated complaint: Fall/AMS Time Seen by Provider: 09/04/20 13:15 Source: patient, EMS Mode of arrival: EMS Limitations: no limitations - History of Present Illness Initial comments: 70-year-old male who presents emergency Department with reported altered mental status. Caretakers at bedside and helps provide history. Reports that the patient had 2 back surgeries at [facility] in July. Performed by a Dr. Harris. On July 24 patient had decompressive lumbar laminectomy L1 through S1 and fusion. Patient was doing well until he had sudden onset of left lower extremity weakness. On August 11 patient had an incision and drainage of lumbar hematoma at [place]. Patient discharged home on some new medications. Vitreo Retinal Surgeon states that for the past 2 weeks he has had some slurred speech however would be transient throughout the day and improved. She thought it was medication related. The patient began having some slurred speech last night. When he awoke this morning at 8:30 the patient was more confused. He was reporting that he had weakness on his right side and his right arm and leg. Patient sustained 2 falls. They were unwitnessed. Vitreo Retinal Surgeon went into the room to find the patient on the floor and this is what prompted her to bring him in. Unknown if he hit his head. He is not on any blood thinners. No history of strokes. No recent medication changes. No fevers or chills. No nausea or vomiting. Surgical site has looked clean dry and intact. Patient denies any headaches or visual changes. He has been having hallucinations. Today he stated that he saw someone crawling from underneath his bed. No other alleviating, precipitating or modifying factors - Related Data Home Medications Medication Instructions Recorded Confirmed Tamsulosin [Flomax] 0.4 mg PO BID 11/16/18 09/04/20 Gabapentin [Neurontin] 300 mg PO TID 08/14/19 09/04/20 Potassium Gluconate 99 mg PO DAILY@1400 08/14/19 09/04/20 Zolpidem Tartrate [Ambien] 10 mg PO HS PRN 08/14/19 09/04/20 hydrALAZINE HCL [Apresoline] 25 mg PO Q8H 08/14/19 09/04/20 Atorvastatin [Lipitor] 40 mg PO HS 09/04/20 09/04/20 Budesonide [Pulmicort] 0.5 mg INHALATION RT-BID 09/04/20 09/04/20 Cyclobenzaprine [Flexeril] 10 mg PO BID@1000,2200 09/04/20 09/04/20 Docusate [Colace] 100 mg PO BID PRN 09/04/20 09/04/20 Losartan [Cozaar] 25 mg PO HS@2200 09/04/20 09/04/20 Methocarbamol [Robaxin-750] 750 mg PO DAILY@1400 PRN 09/04/20 09/04/20 Omeprazole 40 mg PO DAILY@1000 09/04/20 09/04/20 Pramipexole [Mirapex] 2 mg PO HS@2200 09/04/20 09/04/20 Repaglinide [Prandin] 1 mg PO TID 09/04/20 09/04/20 hydrALAZINE HCL [Apresoline] 50 mg PO DAILY@1000 09/04/20 09/04/20 oxyCODONE-APAP 5-325MG [Percocet 1 tab PO Q4H PRN 09/04/20 09/04/20 5-325 mg] Allergies Allergy/AdvReac Type Severity Reaction Status Date / Time azathioprine [From Imuran] Allergy shakiness Verified 09/04/20 14:50 Review of Systems ROS Statement: Those systems with pertinent positive or pertinent negative responses have been documented in the HPI. ROS Other: All systems not noted in ROS Statement are negative. Past Medical History Past Medical History: Chest Pain / Angina, GERD/Reflux, Hyperlipidemia, Hypertension Additional Past Medical History / Comment(s): Sarcoidosis (IN REMISSION). " sometimes hard to urinate". Pre diabetes, RESTLESS LEGS , SLEEP APNEA -CPAP , History of Any Multi-Drug Resistant Organisms: None Reported Past Surgical History: Back Surgery, Heart Catheterization, Hernia Repair Additional Past Surgical History / Comment(s): 09/22/16 HEART CATH (NEG).pain injections, COLONOSCOPY, UMBILICAL HERNIA REPAIR Past Anesthesia/Blood Transfusion Reactions: No Reported Reaction Additional Past Anesthesia/Blood Transfusion Reaction / Comment(s): never has had blood transfusion. NO GENERAL ANESTHESIA. Past Psychological History: Anxiety Past Alcohol Use History: Occasional Past Drug Use History: None Reported - Past Family History Mother Family Medical History: CVA/TIA, Hypertension Father Family Medical History: CVA/TIA, Hypertension General Exam Limitations: altered mental status General appearance: other (confused, active hallucinations, inappropriate response to questioning) Head exam: Present: atraumatic, normocephalic, normal inspection Eye exam: Present: normal appearance, PERRL, EOMI. Absent: scleral icterus, conjunctival injection, periorbital swelling ENT exam: Present: normal exam, mucous membranes moist Neck exam: Present: normal inspection, other (C-collar in place). Absent: tenderness, meningismus, lymphadenopathy Respiratory exam: Present: normal lung sounds bilaterally. Absent: respiratory distress, wheezes, rales, rhonchi, stridor Cardiovascular Exam: Present: regular rate, normal rhythm, normal heart sounds. Absent: systolic murmur, diastolic murmur, rubs, gallop, clicks GI/Abdominal exam: Present: soft, normal bowel sounds. Absent: distended, tenderness, guarding, rebound, rigid Extremities exam: Present: tenderness (right buttock tenderness, lumbar radiculopathy. strength 5/5 ) Back exam: Present: other (Incision clean dry and intact. No signs of cellulitis) Neurological exam: Present: altered Skin exam: Present: warm, dry, intact, normal color. Absent: rash Course Vital Signs 09/04/20 09/04/20 09/04/20 13:16 14:00 15:00 Temperature 99.2 F Pulse Rate 100 81 Respiratory 18 15 Rate Blood Pressure 170/101 159/101 165/104 O2 Sat by Pulse 97 98 98 Oximetry 09/04/20 09/04/20 17:40 17:56 Temperature Pulse Rate 85 80 Respiratory 18 13 Rate Blood Pressure 183/103 159/97 O2 Sat by Pulse 99 97 Oximetry EKG Findings - EKG Comments: EKG Findings:: EKG demonstrates normal sinus rhythm with ventricular rate of 89. ID interval 168. QRS 92. QTC of 435. Baseline artifact. No acute ST segment elevation Medical Decision Making - Medical Decision Making Upon arrival patient was placed into room 18. A thorough history and physical exam was performed. Patient does have equal strength in his extremities. Patient has nonsensical speech and appears overly sedated in the room. He is able to voice that he has pain which starts in his right buttock and radiates into his leg. He is up to continuous pulse ox and cardiac monitoring. 12-lead EKG is performed. Laboratory studies were conducted. Patient does go for CT imaging of his brain, thoracic and lumbar spine. Chest x-ray was also performed. Laboratory studies are reviewed. Hemoglobin is 12.1 from previous of 15.4. Previous value is before the patient's recent back surgeries. TSH is low at 0.338 with a free T4 of 1.34. Urine drug screen is positive for oxycodone. Acetaminophen, alcohol and salicylates are all negative. CT of the brain and cervical spine demonstrates age-related atrophic and chronic small vessel ischemic change without acute process. CT of the cervical spine demonstrates no evidence for acute fracture. C-collar is removed. CT of the thoracic and lumbar spine demonstrates extensive postoperative changes of the lumbar spine with normal alignment. No unusual fluid collections. No evidence for fracture or malalignment. Ultrasound was performed because of the patient's right leg pain and recent surgeries which is negative for DVT. Chest x-ray is negative for acute cardiac pulmonary process. Patient is reevaluated and does have improvement in his mentation. He is able to answer questions much more appropriately. Continues to report to significant pain in his right lower externally. Discussed the case with the patient's primary care physician Dr. Ramirez. Feels that the patient should be transferred to [facility] for evaluation by his neurosurgeon. I called and spoke with Dr. Siddiqui who agreed to accept transfer of the patient. Patient remained in stable condition awaiting transport - Lab Data Result diagrams: 09/04/20 14:32 09/04/20 14:32 Lab Results 09/04/20 09/04/20 09/04/20 Range/Units 14:32 14:32 14:32 WBC 10.3 (3.8-10.6) k/uL RBC 4.14 L (4.30-5.90) m/uL Hgb 12.1 L D (13.0-17.5) gm/dL Hct 36.6 L (39.0-53.0) % MCV 88.4 (80.0-100.0) fL MCH 29.2 (25.0-35.0) pg MCHC 33.0 (31.0-37.0) g/dL RDW 13.9 (11.5-15.5) % Plt Count 186 (150-450) k/uL MPV 7.1 Neutrophils % 79 % Lymphocytes % 13 % Monocytes % 5 % Eosinophils % 2 % Basophils % 0 % Neutrophils # 8.1 H (1.3-7.7) k/uL Lymphocytes # 1.3 (1.0-4.8) k/uL Monocytes # 0.5 (0-1.0) k/uL Eosinophils # 0.2 (0-0.7) k/uL Basophils # 0.0 (0-0.2) k/uL PT 10.0 (9.0-12.0) sec INR 0.9 (<1.2) APTT 23.8 (22.0-30.0) sec Sodium 137 (137-145) mmol/L Potassium 4.0 (3.5-5.1) mmol/L Chloride 104 (98-107) mmol/L Carbon Dioxide 28 (22-30) mmol/L Anion Gap 5 mmol/L BUN 13 (9-20) mg/dL Creatinine 0.72 (0.66-1.25) mg/dL Est GFR (CKD-EPI)AfAm >90 (>60 ml/min/1.73 sqM) Est GFR (CKD-EPI)NonAf >90 (>60 ml/min/1.73 sqM) Glucose 104 H (74-99) mg/dL POC Glucose (mg/dL) (75-99) mg/dL POC Glu Assistant Art Director ID Calcium 9.1 (8.4-10.2) mg/dL Total Bilirubin 0.5 (0.2-1.3) mg/dL AST 26 (17-59) U/L ALT 22 (4-49) U/L Alkaline Phosphatase 98 (38-126) U/L Ammonia (<30) umol/L Creatine Kinase 37 L (55-170) U/L Troponin I (0.000-0.034) ng/mL Total Protein 6.3 (6.3-8.2) g/dL Albumin 3.5 (3.5-5.0) g/dL TSH 0.338 L (0.465-4.680) mIU/L Free T4 1.34 (0.78-2.19) ng/dL Urine Color Urine Appearance (Clear) Urine pH (5.0-8.0) Ur Specific [place] (1.001-1.035) Urine Protein (Negative) Urine Glucose (UA) (Negative) Urine Ketones (Negative) Urine Blood (Negative) Urine Nitrite (Negative) Urine Bilirubin (Negative) Urine Urobilinogen (<2.0) mg/dL Ur Leukocyte Esterase (Negative) Salicylates <1.0 mg/dL Urine Opiates Screen (NotDetected) Ur Oxycodone Screen (NotDetected) Urine Methadone Screen (NotDetected) Ur Propoxyphene Screen (NotDetected) Acetaminophen <10.0 ug/mL Ur Barbiturates Screen (NotDetected) U Tricyclic Antidepress (NotDetected) Ur Phencyclidine Scrn (NotDetected) Ur Amphetamines Screen (NotDetected) U Methamphetamines Scrn (NotDetected) U Benzodiazepines Scrn (NotDetected) Urine Cocaine Screen (NotDetected) U Marijuana (THC) Screen (NotDetected) Serum Alcohol <10 mg/dL 09/04/20 09/04/20 09/04/20 Range/Units 14:32 14:32 14:35 WBC (3.8-10.6) k/uL RBC (4.30-5.90) m/uL Hgb (13.0-17.5) gm/dL Hct (39.0-53.0) % MCV (80.0-100.0) fL MCH (25.0-35.0) pg MCHC (31.0-37.0) g/dL RDW (11.5-15.5) % Plt Count (150-450) k/uL MPV Neutrophils % % Lymphocytes % % Monocytes % % Eosinophils % % Basophils % % Neutrophils # (1.3-7.7) k/uL Lymphocytes # (1.0-4.8) k/uL Monocytes # (0-1.0) k/uL Eosinophils # (0-0.7) k/uL Basophils # (0-0.2) k/uL PT (9.0-12.0) sec INR (<1.2) APTT (22.0-30.0) sec Sodium (137-145) mmol/L Potassium (3.5-5.1) mmol/L Chloride (98-107) mmol/L Carbon Dioxide (22-30) mmol/L Anion Gap mmol/L BUN (9-20) mg/dL Creatinine (0.66-1.25) mg/dL Est GFR (CKD-EPI)AfAm (>60 ml/min/1.73 sqM) Est GFR (CKD-EPI)NonAf (>60 ml/min/1.73 sqM) Glucose (74-99) mg/dL POC Glucose (mg/dL) 118 H (75-99) mg/dL POC Glu Assistant Art Director ID Carmen Packer Calcium (8.4-10.2) mg/dL Total Bilirubin (0.2-1.3) mg/dL AST (17-59) U/L ALT (4-49) U/L Alkaline Phosphatase (38-126) U/L Ammonia 14 (<30) umol/L Creatine Kinase (55-170) U/L Troponin I <0.012 (0.000-0.034) ng/mL Total Protein (6.3-8.2) g/dL Albumin (3.5-5.0) g/dL TSH (0.465-4.680) mIU/L Free T4 (0.78-2.19) ng/dL Urine Color Urine Appearance (Clear) Urine pH (5.0-8.0) Ur Specific [place] (1.001-1.035) Urine Protein (Negative) Urine Glucose (UA) (Negative) Urine Ketones (Negative) Urine Blood (Negative) Urine Nitrite (Negative) Urine Bilirubin (Negative) Urine Urobilinogen (<2.0) mg/dL Ur Leukocyte Esterase (Negative) Salicylates mg/dL Urine Opiates Screen (NotDetected) Ur Oxycodone Screen (NotDetected) Urine Methadone Screen (NotDetected) Ur Propoxyphene Screen (NotDetected) Acetaminophen ug/mL Ur Barbiturates Screen (NotDetected) U Tricyclic Antidepress (NotDetected) Ur Phencyclidine Scrn (NotDetected) Ur Amphetamines Screen (NotDetected) U Methamphetamines Scrn (NotDetected) U Benzodiazepines Scrn (NotDetected) Urine Cocaine Screen (NotDetected) U Marijuana (THC) Screen (NotDetected) Serum Alcohol mg/dL 09/04/20 Range/Units 16:27 WBC (3.8-10.6) k/uL RBC (4.30-5.90) m/uL Hgb (13.0-17.5) gm/dL Hct (39.0-53.0) % MCV (80.0-100.0) fL MCH (25.0-35.0) pg MCHC (31.0-37.0) g/dL RDW (11.5-15.5) % Plt Count (150-450) k/uL MPV Neutrophils % % Lymphocytes % % Monocytes % % Eosinophils % % Basophils % % Neutrophils # (1.3-7.7) k/uL Lymphocytes # (1.0-4.8) k/uL Monocytes # (0-1.0) k/uL Eosinophils # (0-0.7) k/uL Basophils # (0-0.2) k/uL PT (9.0-12.0) sec INR (<1.2) APTT (22.0-30.0) sec Sodium (137-145) mmol/L Potassium (3.5-5.1) mmol/L Chloride (98-107) mmol/L Carbon Dioxide (22-30) mmol/L Anion Gap mmol/L BUN (9-20) mg/dL Creatinine (0.66-1.25) mg/dL Est GFR (CKD-EPI)AfAm (>60 ml/min/1.73 sqM) Est GFR (CKD-EPI)NonAf (>60 ml/min/1.73 sqM) Glucose (74-99) mg/dL POC Glucose (mg/dL) (75-99) mg/dL POC Glu Assistant Art Director ID Calcium (8.4-10.2) mg/dL Total Bilirubin (0.2-1.3) mg/dL AST (17-59) U/L ALT (4-49) U/L Alkaline Phosphatase (38-126) U/L Ammonia (<30) umol/L Creatine Kinase (55-170) U/L Troponin I (0.000-0.034) ng/mL Total Protein (6.3-8.2) g/dL Albumin (3.5-5.0) g/dL TSH (0.465-4.680) mIU/L Free T4 (0.78-2.19) ng/dL Urine Color Light Yellow Urine Appearance Clear (Clear) Urine pH 7.0 (5.0-8.0) Ur Specific [place] 1.007 (1.001-1.035) Urine Protein Negative (Negative) Urine Glucose (UA) Negative (Negative) Urine Ketones Negative (Negative) Urine Blood Negative (Negative) Urine Nitrite Negative (Negative) Urine Bilirubin Negative (Negative) Urine Urobilinogen <2.0 (<2.0) mg/dL Ur Leukocyte Esterase Negative (Negative) Salicylates mg/dL Urine Opiates Screen Not Detected (NotDetected) Ur Oxycodone Screen Detected H (NotDetected) Urine Methadone Screen Not Detected (NotDetected) Ur Propoxyphene Screen Not Detected (NotDetected) Acetaminophen ug/mL Ur Barbiturates Screen Not Detected (NotDetected) U Tricyclic Antidepress Not Detected (NotDetected) Ur Phencyclidine Scrn Not Detected (NotDetected) Ur Amphetamines Screen Not Detected (NotDetected) U Methamphetamines Scrn Not Detected (NotDetected) U Benzodiazepines Scrn Not Detected (NotDetected) Urine Cocaine Screen Not Detected (NotDetected) U Marijuana (THC) Screen Not Detected (NotDetected) Serum Alcohol mg/dL Disposition Clinical Impression: Right leg pain, Acute encephalopathy, History of laminectomy Disposition: OTHER INSTITUTION NOT DEFINED Condition: Stable Is patient prescribed a controlled substance at d/c from ED?: No Referrals: Jason Ramirez DO [Primary Care Provider] - 1-2 days - Out of Hospital Transfer - Req. Specs Out of Hospital Transfer - Requested Specifics: Other Emergency Center ([facility]
[2020-09-04 14:38] LABS: Glucose,Whole Blood 118 mg/dL (75-99)
[2020-09-04 15:02] LABS: Basophils % (A) 0 %; Eosinophils # (A) 0.2 k/uL (0-0.7); Eosinophils % (A) 2 %; HCT 36.6 % (39.0-53.0); Lymphocytes # (A) 1.3 k/uL (1.0-4.8); Lymphocytes % (A) 13 %; MCH 29.2 pg (25.0-35.0); MCV 88.4 fL (80.0-100.0); Mean Platelet Volume 7.1; Monocytes # (A) 0.5 k/uL (0-1.0); Monocytes % (A) 5 %; Neutrophils # (A) 8.1 k/uL (1.3-7.7); Neutrophils % (A) 79 %; Platelet Count 186 k/uL (150-450); RBC 4.14 m/uL (4.30-5.90); RDW 13.9 % (11.5-15.5); WBC 10.3 k/uL (3.8-10.6)
--- NOTE | 2020-09-04 15:06 | CT ---
EXAMINATION TYPE: CT brain nae marrero DATE OF EXAM: 09/04/2020 COMPARISON: None HISTORY: altered mental status CT DLP: 1638.[address] of the brain was performed. The ventricles, basal cisterns and sulci overlying the cerebral convexities demonstrate mild enlargem ent. There is no evidence for intracranial hemorrhage or sulcal effacement. There is decreased attenuatio n about the periventricular white matter and deep white matter of both cerebral hemispheres, compatib le with chronic small vessel ischemia. No mass effects are seen. If symptoms persist consider MRI. Osseous calvarium is intact. IMPRESSION: 1. Age related atrophic and chronic small vessel ischemic change without acute intracranial process seen at this time. CT Cervical Spine: Unenhanced CT of the cervical spine was performed with bone and soft tissue window settings submitted . Coronal and sagittal reconstruction is obtained. There is normal alignment and prevertebral soft tissues. No evidence for acute cervical fracture . Scattered degenerative disc disease and spondylosis. Biapical scarring. IMPRESSION: 1. No evidence for acute fracture or subluxation of the cervical spine.
[2020-09-04 15:08] LABS: HGB 12.1 gm/dL (13.0-17.5)
[2020-09-04 15:09] LABS: ALT 22 U/L (4-49); AST 26 U/L (17-59); Acetaminophen <10.0 ug/mL; African American GFR (CKD) >90 (>60 ml/min/1.73 sqM); Albumin 3.5 g/dL (3.5-5.0); Alcohol <10 mg/dL; Alkaline Phosphatase 98 U/L (38-126); Anion Gap 5 mmol/L; Blood Urea Nitrogen 13 mg/dL (9-20); Calcium 9.1 mg/dL (8.4-10.2); Carbon Dioxide 28 mmol/L (22-30); Chloride 104 mmol/L (98-107); Creatine Kinase 37 U/L (55-170); Glucose 104 mg/dL (74-99); Non-African American GFR(CKD) >90 (>60 ml/min/1.73 sqM); Salicylate <1.0 mg/dL; Sodium 137 mmol/L (137-145); Total Bilirubin 0.5 mg/dL (0.2-1.3); Total Protein 6.3 g/dL (6.3-8.2)
[2020-09-04 15:11] LABS: INR 0.9 (<1.2); Partial Thromboplastin Time 23.8 sec (22.0-30.0)
--- NOTE | 2020-09-04 15:14 | CT ---
EXAMINATION TYPE: CT thor lumbar spine wo con DATE OF EXAM: 09/04/2020 COMPARISON: None HISTORY: altered mental status. back surgery in july CT DLP: 2869.[address] of the thoracic and lumbar spine was performed. Bone and soft tissue window settings a re submitted as well as coronal and sagittal reconstructions. The lack of contrast limits evaluation. Thoracic spine: There is no evidence for fracture or malalignment. Mild multilevel degenerative disc space narrowing and ventral spondylosis. No evidence for disc herniation or protrusion. No central st enosis. Incidentally there is mild basilar atelectasis. Remote granulomatous disease. Scattered emphy sematous bulla. Lumbar spine: Extensive lumbar laminectomy from L1 through L5 S1 with pedicular screws in place. Ther e is normal appearing alignment. Streak artifact limits evaluation as well as the lack of contrast. N o evidence of fracture or malalignment. No unusual collections seen. IMPRESSION: 1. Extensive postoperative change lumbar spine. Normal alignment is seen. Examination is limited by s treak artifact and lack of contrast. No unusual collections seen. 2. Degenerative changes of thoracic spine. 3. No evidence for fracture or malalignment.
--- NOTE | 2020-09-04 15:37 | US ---
EXAMINATION TYPE: US venous doppler duplex LE RT DATE OF EXAM: 09/04/2020 3:30 PM COMPARISON: NONE CLINICAL HISTORY: pain, recent surgery. Recent back surgery. C/O right leg pain/swelling SIDE PERFORMED: Right TECHNIQUE: The lower extremity deep venous system is examined utilizing real time linear array sonog melisa with graded compression, doppler sonography and color-flow sonography. VESSELS IMAGED: Common Femoral Vein Deep Femoral Vein Greater Saphenous Vein * Femoral Vein Popliteal Vein Small Saphenous Vein * Proximal Calf Veins (* superficial vessels) Right Leg: Negative for DVT IMPRESSION: No evidence for DVT
--- NOTE | 2020-09-04 16:18 | XR ---
EXAMINATION TYPE: XR chest 2V DATE OF EXAM: 09/04/2020 COMPARISON: 07/09/2020 HISTORY: Shortness of breath TECHNIQUE: Frontal and lateral views of the chest are obtained. FINDINGS: Scattered senescent parenchymal changes noted. Hyperinflation compatible with COPD. No evidence for infiltrate. No evidence for atelectasis. Heart size is stable. Mediastinal structures are stable and grossly unremarkable. No evidence for hilar prominence. Degenerative changes dorsal spine. IMPRESSION: 1. No evidence for acute pulmonary disease.
[2020-09-04 16:44] LABS: Appearance,Urine Clear (Clear); Bilirubin,Urine Negative (Negative); Blood,Urine Negative (Negative); Color,Urine Light Yellow; Glucose,Urine (UA) Negative (Negative); Ketones,Urine Negative (Negative); Leukocyte Esterase,Urine Negative (Negative); Nitrite,Urine Negative (Negative); Protein,Urine Negative (Negative); Specific Gravity,Urine 1.007 (1.001-1.035); Urobilinogen,Urine <2.0 mg/dL (<2.0)
[2020-09-04 16:53] LABS: Amphetamine Screen,Urine Not Detected (NotDetected); Barbiturate Screen,Urine Not Detected (NotDetected); Benzodiazepines Screen,Urine Not Detected (NotDetected); Cocaine Screen,Urine Not Detected (NotDetected); Methadone Screen, Urine Not Detected (NotDetected); Opiate Screen,Urine Not Detected (NotDetected); Oxycodone Screen, Urine Detected (NotDetected); Phencyclidine Screen,Urine Not Detected (NotDetected); Tricyclic Antidepressant,Urine Not Detected (NotDetected); Urn Cannabinoid Scrn Not Detected (NotDetected)
[2020-09-04 17:32] LABS: T4, Free (Free Thyroxine) 1.34 ng/dL (0.78-2.19)
[2020-09-04] MEDS ORDERED: oxyCODONE-APAP 5-325MG 1 EACH TAB PO STA (17:34)
[2020-09-04 17:57] VITALS: BP 159/97; PULSE 80; RESP 13
== END 2020-09-04 19:08 | disposition other institution (70) ==
LOC: EC 13:12
DX: G93.40 Encephalopathy, unspecified (principal); M79.604 Pain in right leg; Z98.890 Other specified postprocedural states; E78.5 Hyperlipidemia, unspecified; K21.9 Gastro-esophageal reflux disease without esophagitis; G47.30 Sleep apnea, unspecified; F41.9 Anxiety disorder, unspecified; Z79.899 Other long term (current) drug therapy; Z79.51 Long term (current) use of inhaled steroids; Z99.89 Dependence on other enabling machines and devices
CPT/HCPCS: 36415; 93005; 84439; 80053; 84443; 82140; 82550; 84484; 85025; 85610; 85730; 81003; 80306; 80143; 80179; 71046; 93971; 72128; 72125; 72131; 70450; 99285; 96360; G0480; 80320

== ENCOUNTER 2021-09-18 08:29 | Day surgery (SDC) | payer MEDICARE, OTHER ==
[2021-09-18 08:51] VITALS: RESP 18; TEMP 97.5
[2021-09-18] MEDS ORDERED: LACTATED RINGERS 1,000 ML IV ONE (08:52)
[2021-09-18 09:00] LABS: Glucose,Whole Blood 115 mg/dL (75-99)
[2021-09-18] MEDS ORDERED: LACTATED RINGERS 1,000 ML IV SCH (09:02)
[2021-09-18] MEDS ORDERED: PROPOFOL 10 MG/ML 20 ML VIAL IV ONE (09:11)
--- NOTE | 2021-09-18 09:36 | P.PCN ---
Date of Procedure: 09/18/21 Procedure(s) Performed: BRIEF HISTORY: Patient is a 71-year-old pleasant white male scheduled for an elective colonoscopy as a part of evaluation of screening for colorectal neoplasia. PROCEDURE PERFORMED: Colonoscopy. With snare polypectomy PREOPERATIVE DIAGNOSIS: Screening for colon cancer. IV sedation per Anesthesia. PROCEDURE: After informed consent was obtained, the patient, was brought into the endoscopy unit. IV sedation was administered by Anesthesia under continuous monitoring. Digital rectal examination was normal. Initially the Olympus CF-160 flexible video colonoscope was then inserted in the rectum, gradually advanced into the cecum without any difficulty. Careful examination was performed as the scope was gradually being withdrawn. Ileocecal valve and the appendiceal orifice were visualized and appeared normal. Prep was excellent. Mucosa of the cecum, had a 5 limited polyp that was removed by snare polypectomy. In the ascending colon there was a 3 mm and 1 cm polyp removed by snare polypectomy ascending colon, transverse colon, descending colon, sigmoid colon, and rectum appeared normal. Retroflexion was performed in the rectum and no lesions were seen. Scattered sigmoid diverticulosis. The patient tolerated the procedure well. IMPRESSION: 5 mm cecal polyp status post polypectomy 3 mm and 1 cm ascending colon polyp status post snare polypectomy Scattered sigmoid diverticulosis RECOMMENDATIONS: Findings of this examination were discussed with the patient as well as his family. He was advised to follow with the biopsy results. If the biopsy reveals adenoma he can have a repeat colonoscopy in 3 years.
[2021-09-18 09:57] VITALS: BP 160/90; PULSE 60
== END 2021-09-18 10:35 | disposition home or self-care (01) ==
LOC: ORWHC2ENDO 08:29
PROVIDERS: ATTEND Internal Medicine Gastroenterology
DX: Z12.11 Encounter for screening for malignant neoplasm of colon (principal); D12.2 Benign neoplasm of ascending colon; D12.0 Benign neoplasm of cecum; K57.30 Diverticulosis of large intestine without perforation or abscess without bleeding; Z86.010 Personal history of colon polyps; G47.33 Obstructive sleep apnea (adult) (pediatric); I10 Essential (primary) hypertension; E78.5 Hyperlipidemia, unspecified; D86.9 Sarcoidosis, unspecified; K21.9 Gastro-esophageal reflux disease without esophagitis; Z98.890 Other specified postprocedural states; Z79.51 Long term (current) use of inhaled steroids; Z88.8 Allergy status to other drugs, medicaments and biological substances; Z79.899 Other long term (current) drug therapy
CPT/HCPCS: 88305; 45385; J2704

== ENCOUNTER → 2021-10-05 | Outpatient (CLI) | payer MEDICARE ==
--- NOTE | 2021-10-05 11:40 | CT ---
EXAMINATION TYPE: CT lumbar spine wo con DATE OF EXAM: 10/05/2021 10:21 AM COMPARISON: CT dated 2020 HISTORY: Lumbar stenosis, prior surgeries CT DLP: 1258.8 mGycm Automated exposure control for dose reduction was used. TECHNIQUE: Unenhanced CT of the lumbar spine was performed. Bone and soft tissue window settings are submitted as well as coronal and sagittal reconstructions. FINDINGS: Previous lumbar fixation from L1 down to S1 using 2 rods and 12 screws. No evidence of prosthesis yvette ak or displacement. Laminectomy of L2, L3, L4 and L5. Progressive erosive changes involving the super ior aspect of S1 with surrounding sclerotic changes and questionable progressive periprosthesis lucen cy. Suspected chronic transverse fracture of S1. Loosening or infection at that location can't be exc luded, for further bone scan assessment. No significant anterolisthesis or retrolisthesis. Opposing endplate osteophytosis at L1-2, L2-3 and t o a lesser extent L3-4 levels. Degenerated L1-2 and discs. L1-L2: Suboptimally assessed due to artifacts. Degenerated disc with posterior osteophytosis causing mild central spinal canal stenosis. No significant neuroforaminal stenosis. L2-L3: Bilateral focal foraminal disc protrusions, larger on the right side causing moderate bilatera l neuroforaminal stenosis, slightly more on the right side. Spinal canal is suboptimally assessed due to artifacts. L3-L4: Diffuse posterior disc bulge with tiny posterior osteophytosis, causing moderate right and mod [id number] left neuroforaminal stenosis. Spinal canal is suboptimally assessed due to artifacts L4-L5: Diffuse posterior disc bulge with posterior osteophytosis and right facet osteoarthropathy, ca using severe right and [id number] left neuroforaminal stenosis. Spinal canal is suboptimally assessed due to artifacts. L5-S1: Bilateral facet osteoarthropathy and osteophytosis. Disc is suboptimally assessed as well as t he central spinal canal due to artifacts. Severe bilateral neuroforaminal stenosis more on the right side compressing the corresponding L5 nerve root. Questionable compression of S1 nerve roots at that level. Degenerative changes of the sacroiliac joints. Scattered arterial atherosclerotic calcifications. Hep atic caudate lobe hypodensity, likely representing a tiny cyst. Fatty infiltration of the pancreatic head. No paraspinal lesion. IMPRESSION: Postsurgical changes of the lumbar spine as detailed above. Progressive erosive changes, sclerotic ch anges and possible chronic fracture at S1 with suspected periprosthesis lucency as described above. U nderlying infection or loosening cannot be excluded, please correlate clinically. Further bone scan/g allium scan assessment can be considered. Degenerative changes of the lumbar spine with multilevel DDD and neuroforaminal stenosis as detailed above. Other incidental findings as described above.
== END | disposition home or self-care (01) ==
LOC: RADCTMAIN 10:01
PROVIDERS: ATTEND Orthopaedic Surgery
DX: M47.816 Spondylosis without myelopathy or radiculopathy, lumbar region (principal); M51.36 Other intervertebral disc degeneration, lumbar region; M99.73 Connective tissue and disc stenosis of intervertebral foramina of lumbar region
CPT/HCPCS: 72131

== ENCOUNTER → 2022-02-08 | Outpatient (CLI) | payer MEDICARE ==
[2022-02-08 17:13] LABS: African American GFR (CKD) >90 (>60 ml/min/1.73 sqM); Blood Urea Nitrogen 25 mg/dL (9-20); Non-African American GFR(CKD) 87 (>60 ml/min/1.73 sqM)
--- NOTE | 2022-02-08 19:43 | CT ---
EXAMINATION TYPE: CT chest w con CT DLP: 432.20 mGycm, Automated exposure control for dose reduction was used. DATE OF EXAM: 02/08/2022 5:35 PM COMPARISON: CT chest 05/31/2019, CT 08/15/2014. CLINICAL INDICATION:Male, 71 years old with history of R05.3 cough; CHRONIC COUGH TECHNIQUE: Multiple axial images were obtained through the chest. Sagittal and coronal reformats were created for review. Contrast used:100 mL of Isovue 300 with IV Contrast, Oral contrast used: none. FINDINGS: LUNGS/ PLEURA: Scattered pulmonary nodules some which are calcified including right upper lobe image 23, right middle lobe image 40, right upper lobe image 18 and 22, and left major fissure image 10 are stable to prior in 2019. No evidence of focal consolidation , pneumothorax or pleural effusion. No n ew or enlarging suspicious pulmonary nodules. There is centrilobular emphysema changes with scattered air cyst. Overall the lung parenchyma does not appear all that different from 2019. HEART: Heart is mildly enlarged for size. Mild atherosclerosis of the coronary arteries AIRWAY: Patent and unremarkable. . MEDIASTINUM: Prominent borderline enlarged lymph nodes seen within the mediastinum example includes r ight low paratracheal measuring 11 mm in short axis which is similar in size to 2019 additional subca rinal lymph node measures similarly to slightly decreased in size measuring 10 mm in short axis. VASCULATURE: No aortic aneurysm. MUSCULOSKELETAL: No acute osseous abnormalities SOFT TISSUES/LYMPH NODES: Unremarkable. LOWER NECK: No significant findings. UPPER ABDOMEN: Partially visualized fixation hardware in the lower spine. Hardware appears intact. Di ffuse low-attenuation to the liver parenchyma. IMPRESSION: 1. No evidence for acute infectious process. Overall the lung parenchyma does not appear all that di fferent from 05/31/2019. 2. Scattered pulmonary nodules of which majority are partially calcified, these are stable back to 015. 3. Stable mediastinal lymph nodes which are enlarged back to 2015. 4. COPD changes 5. Hepatic steatosis.
== END | disposition home or self-care (01) ==
LOC: RADCTMAIN 16:19
PROVIDERS: ATTEND Internal Medicine Critical Care Medicine
DX: J44.9 Chronic obstructive pulmonary disease, unspecified (principal); K76.0 Fatty (change of) liver, not elsewhere classified; R59.0 Localized enlarged lymph nodes
CPT/HCPCS: 82565; 84520; 71260; 36415; Q9967

== ENCOUNTER → 2023-03-04 | Outpatient (CLI) | payer MEDICARE ==
--- NOTE | 2023-03-04 08:21 | XR ---
EXAMINATION TYPE: XR lumbosacral spine min 4V DATE OF EXAM: 03/04/2023 COMPARISON: None HISTORY: Low back pain TECHNIQUE: 5 view lumbar spine FINDINGS: There are 5 lumbar-type vertebral bodies. Pedicle screws are present throughout the lumbar spine and into S1. Vertebral body heights are preserved. There is some disc space narrowing T12-L1 an d L1-2. Some posterior disc space narrowing may be present L2-3. Alignment appears straightened. Bone buttressing is evident. Oblique views are limited. Foramen are not well visualized. IMPRESSION: 1. Postsurgical changes to the lumbar spine. 2. Degenerative disc changes greatest at the thoracolumbar region. 3. No acute osseous abnormality.
== END | disposition home or self-care (01) ==
LOC: RADXRMAIN 07:50
PROVIDERS: ATTEND Physical Medicine & Rehabilitation Pain Medicine
DX: M51.15 Intervertebral disc disorders with radiculopathy, thoracolumbar region (principal); M47.27 Other spondylosis with radiculopathy, lumbosacral region; M96.1 Postlaminectomy syndrome, not elsewhere classified; R20.8 Other disturbances of skin sensation; M47.26 Other spondylosis with radiculopathy, lumbar region
CPT/HCPCS: 72110

== ENCOUNTER → 2023-05-20 | Outpatient (CLI) | payer MEDICARE ==
--- NOTE | 2023-05-20 20:24 | NM ---
EXAMINATION TYPE: NM bone scan whole body DATE OF EXAM: 05/20/2023 COMPARISON: Radiograph 03/04/2023 CLINICAL INDICATION: Male, 73 years old with history of M43.26 FUSION OF SPINE, LUMBAR REGION; M43.26 FUSION OF SPINE, LUMBAR REGION TECHNIQUE: Delayed whole-body scanning was performed following the injection of 25.5 mCi Tc 99m MDP. Images acquired 3 hours post injection. FINDINGS: Activity vertically paralleling the lumbar spine on either side compatible with lateral osseous fusio n changes. There is focal increased activity at the bilateral L5 posterior elements and additional fo aretha activity above the fusion at T12-L1. Additional scattered degenerative tracer activity throughout the shoulders, right sternoclavicular gladys int, knees, bases of the thumbs, and throughout the feet. IMPRESSION: 1. Patient status post L1-S1 posterior lumbar fusion. Lateral osseous fusion changes are demonstrated . 2. Focal activity above the fusion at T12-L1 likely secondary to accelerated degenerative disc diseas e/facet arthropathy. 3. Activity on both the right and left sides at the S1 level probably reflects screw loosening which could be mechanical or due to infection. Clinically correlate. 4. Additional degenerative tracer activity throughout as mentioned above.
== END | disposition home or self-care (01) ==
LOC: RADNMMAIN 09:46
PROVIDERS: ATTEND Family Medicine
DX: M43.26 Fusion of spine, lumbar region (principal)
CPT/HCPCS: 78306; A9503

== ENCOUNTER → 2023-09-21 | Outpatient (CLI) | payer MEDICARE ==
--- NOTE | 2023-09-22 09:47 | CT ---
EXAMINATION TYPE: CT thor lumbar spine wo con CT DLP: 2129 mGycm, Automated exposure control for dose reduction was used. DATE OF EXAM: 09/21/2023 3:59 PM CLINICAL INDICATION:Male, 73 years old with history of M54.16 RADICULOPATHY, LUMBAR REGION; Chronic l ower back pain COMPARISON: 09/04/2020 TECHNIQUE: Axial images of the thoracic and lumbar spine were obtained without contrast. Coronal and sagittal reformats were performed. CT Contrast: Contrast used: none. Oral contrast used: none. FINDINGS: Multilevel degeneration changes throughout the spine with disc space narrowing, osteophyte formation and facet joint arthropathy. Fixation hardware extending from L1 through S1 is present. Rosaura or screws have been removed to the L4 vertebral body. The hardware appears intact and appropriate pos ition. There is scattered bony fusion along the lateral facets extending to this region. There is inc reased degeneration changes at the superior end of the surgical fixation at the adjoining endplates o f T12 and L1 with interspace narrowing, cysts sclerosis and Schmorl's nodes. Given limitations of str eak artifact the spinal canal appears patent with no evidence for significant spinal canal stenosis t hroughout the thoracolumbar spine. Neural foraminal stenosis from facet joint arthropathy worse at L4 -L5 and L5-S1 with moderate to severe bilateral. Osteophyte formation sacroiliac joints bilaterally. There is laminectomy changes throughout the surgical levels including L2-L5. No evidence of fracture. Other: Scattered calcified and partially calcified lymph nodes are seen in the chest. There is pulmon adriana vascular congestion with cardiomegaly. IMPRESSION: 1. Post fixation changes throughout the spine from L1 to S1 with hardware intact. Interval removal o f hardware at L4 and increased degeneration at T12-L1 which is new from prior. This is likely due to altered mechanics from fixation.Bony fusion at the fixation levels of the posterior elements. There is increased degeneration changes at the T12-L1 vertebral body level. 2. Neural foraminal stenosis worse at L5-S1 with moderate to severe bilateral 3. No evidence of fracture. 4. No significant spinal canal stenosis. 5. Cardiomegaly and pulmonary vascular congestion correlate with serum BNP. 6. Chronic granulomatous disease.
--- NOTE | 2023-09-22 14:39 | MR ---
EXAMINATION TYPE: MR tspine/lspine wo con DATE OF EXAM: 09/21/2023 COMPARISON: Prior MRI lumbar spine August 28, 2019. CT thoracic and lumbar spine same date. HISTORY: Mid and low back pain. History of surgery. TECHNIQUE: Multiplanar, multisequence imaging of the thoracic and lumbar spine are performed without IV contrast. T-SPINE: FINDINGS: Spinal cord shows normal course, caliber, and signal as it courses the thoracic spine. Clifford tebral body heights and alignment remain satisfactory. Bone marrow signal intensity is preserved. Sma ll posterior disc herniations minimally effaces the anterior thecal sac at T9-T10 through the T11-T12 levels. Review of the axial images shows no significant spinal canal stenosis or neural foraminal narrowing a t any thoracic level. No suspicious incidental finding thorax or upper abdomen is seen. IMPRESSION: Small multilevel posterior disc herniations in the lower thoracic spine. L-SPINE: Sagittal images of the lumbar spine show vertebral extensive susceptibility artifact from posterior p edicular rods and screws transfixing L1-L3 levels bilaterally and L5-S1 levels bilaterally. Moderate to advanced disc space narrowing at T12-L1 level is seen. Mild disc space narrowing at L3-L4 level. The conus medullaris is difficult to distinctly visualize due to susceptibility artifact in the upper lumbar spine. Axial images at T12-L1 level shows significant blooming artifact. Moderate bilateral facet arthropath y and recent CT is seen. Spinal canal fairly well-preserved on CT. Axial images at all lumbar levels are nondiagnostic due to extensive artifact. All levels but evaluat ed on same day CT study. CT study shows posterior decompression changes with spinous process resectio n at several levels in the lower lumbar spine. IMPRESSION: Multilevel surgical change at L1-L3 and the L5-S1 levels is present. There is degenerativ e change noted at T12-L1 level seen better on same-day CT.
== END | disposition home or self-care (01) ==
LOC: RADMRIMAIN 13:44
PROVIDERS: ATTEND Neurological Surgery
DX: M47.25 Other spondylosis with radiculopathy, thoracolumbar region (principal); M51.24 Other intervertebral disc displacement, thoracic region; M99.73 Connective tissue and disc stenosis of intervertebral foramina of lumbar region; M46.1 Sacroiliitis, not elsewhere classified; I51.7 Cardiomegaly; D71 Functional disorders of polymorphonuclear neutrophils; R09.89 Other specified symptoms and signs involving the circulatory and respiratory systems; Z98.890 Other specified postprocedural states
CPT/HCPCS: 72128; 72131; 72146; 72148

== ENCOUNTER → 2023-09-23 | Outpatient (CLI) | payer MEDICARE ==
--- NOTE | 2023-09-26 21:28 | MR ---
EXAMINATION TYPE: MR pelvis wo con DATE OF EXAM: 09/23/2023 9:01 PM CLINICAL INDICATION:Male, 73 years old with history of M46.1sacroiliitis, not elsewhere classified M5 4.16; PHH, Sacroiliitis, Low back pain, COMPARISON: 09/21/2023 TECHNIQUE: Triplane multisequence imaging was performed of the pelvis. IV Contrast: No contrast given FINDINGS: Reproductive: Prostate: Prostate gland is enlarged measuring up to 5.2 cm in transverse dimension. No suspicious fo aretha lesions identified on T2 weighted imaging. Seminal vesicle's: Unremarkable. Testes: Unremarkable. Bladder: Unremarkable. Bowel: Scattered colonic diverticula. Peritoneum: A small amount of free fluid in the pelvis. Lymph nodes: No evidence of adenopathy. Vasculature: Unremarkable. Musculoskeletal: Bone marrow signal is within normal signal intensity given the limitations of the ex am with susceptibility artifact from fixation hardware. Mild degeneration changes of the sacroiliac j oints bilaterally with osteophyte formation. Edema sequences are limited due to susceptibility artifa ct. Degeneration changes of the spine. Abdominal wall/soft tissues: Unremarkable. IMPRESSION: 1. Mild degeneration changes of the sacroiliac joints. Evaluation on some sequences limited due to s usceptibility artifact. 2. Prostatomegaly, correlate with serum PSA. 3. Colonic diverticulosis.
== END | disposition home or self-care (01) ==
LOC: RADMRIMAIN 20:15
PROVIDERS: ATTEND Neurological Surgery
DX: M46.1 Sacroiliitis, not elsewhere classified (principal); N40.0 Benign prostatic hyperplasia without lower urinary tract symptoms; K57.30 Diverticulosis of large intestine without perforation or abscess without bleeding; M54.16 Radiculopathy, lumbar region
CPT/HCPCS: 72195

== ENCOUNTER → 2023-10-21 | Outpatient (CLI) | payer MEDICARE ==
[2023-10-21 13:05] LABS: INR 0.9 (<1.2); Partial Thromboplastin Time 25.4 sec (22.0-30.0); Prothrombin Time 10.4 sec (10.0-12.5)
== END | disposition home or self-care (01) ==
LOC: LABWHC1 11:00
PROVIDERS: ATTEND Physical Medicine & Rehabilitation Pain Medicine
DX: Z01.818 Encounter for other preprocedural examination (principal); R94.31 Abnormal electrocardiogram [ECG] [EKG]
CPT/HCPCS: 36415; 85610; 85730; 93005

== ENCOUNTER → 2024-05-17 | Outpatient (CLI) | payer MEDICARE ==
--- NOTE | 2024-05-17 20:16 | MR ---
EXAMINATION TYPE: MR thoracic spine wo con DATE OF EXAM: 05/17/2024 7:47 PM COMPARISON: None. CLINICAL INDICATION: Male, 74 years old with history of M40.294, Kyphosis, back pain TECHNIQUE: Multiplanar, multiecho imaging on a 3.0 Tanika magnet is performed through the thoracic spi ne. FINDINGS: Spinal cord maintains normal signal through its visualized course. Vertebral body alignment is normal. Vertebral body heights are preserved. Disc heights are preserved. Disc hydration levels are preserved. T11-12: Some disc bulge is present with mild anterior thecal sac compression. This comes in close david roximation spinal cord. No cord contact in the axial plane is evident. No spinal canal stenosis is pr esent. T10-11: Facet hypertrophy is some posterior lateral thecal sac contact without spinal canal stenosis or cord contact. T8-9: Some mild left paracentral disc bulge is mild anterior thecal sac compression. No spinal canal stenosis is present. No cord contact evident. This may be an interval change. No spinal canal stenosis is evident. IMPRESSION: 1. Mild disc bulging at T11-12 with mild anterior thecal sac compression. No spinal canal stenosis or cord contact present. 2. Some mild left paracentral disc bulging may be developing at T8-9 without cord contact or spinal c anal stenosis. [facility], Workstation: [email or web address], 05/17/2024 8:13 PM
== END | disposition home or self-care (01) ==
LOC: RADMRIMAIN 18:27
PROVIDERS: ATTEND Orthopaedic Surgery
CPT/HCPCS: 72146

== ENCOUNTER → 2024-06-20 | Outpatient (CLI) | payer MEDICARE ==
[2024-06-20 15:17] LABS: HCT 42.4 % (39.6-50.0); HGB 14.1 g/dL (13.0-17.0); MCH 29.3 pg (27.0-32.0); MCHC 33.3 g/dL (32.0-37.0); NRBC Per 100 WBC 0 X 10*3/uL (0.00-0.01); Platelet Count 231 X 10*3/uL (140-440); RBC 4.82 X 10*6/uL (4.40-5.60); WBC 11.79 X 10*3/uL (4.50-10.00)
[2024-06-20 15:18] LABS: Basophils # (A) 0.03 X 10*3/uL (0.00-0.10); Basophils % (A) 0.3 %; Eosinophils # (A) 0.07 X 10*3/uL (0.04-0.35); Eosinophils % (A) 0.6 %; Lymphocytes % (A) 9.3 %; Monocytes # (A) 0.17 X 10*3/uL (0.20-1.00); Monocytes % (A) 1.4 %; Neutrophils # (A) 10.37 X 10*3/uL (1.80-7.70)
[2024-06-20 15:27] LABS: Calcium 9.1 mg/dL (8.7-10.3); Chloride 102 mmol/L (96-109); Glucose 214 mg/dL (70-110); Potassium 4.4 mmol/L (3.5-5.5); Sodium 141 mmol/L (135-145)
== END | disposition home or self-care (01) ==
LOC: LABPAT 12:23
PROVIDERS: ATTEND Urology
DX: Z01.818 Encounter for other preprocedural examination (principal); N40.1 Benign prostatic hyperplasia with lower urinary tract symptoms
CPT/HCPCS: 36415; 80048; 85025

== ENCOUNTER → 2024-06-20 | Outpatient (CLI) | payer MEDICARE ==
--- NOTE | 2024-06-20 15:29 | US ---
EXAMINATION TYPE: US venous doppler duplex LE RT DATE OF EXAM: 06/20/2024 3:14 PM COMPARISON: NONE CLINICAL INDICATION: Male, 74 years old with history of M79.661 PAIN IN RIGHT LOWER LEG; Right leg sw elling, no redness, no injury, Pain TECHNIQUE: The lower extremity deep venous system is examined utilizing real time linear array sonog melisa with graded compression, color doppler sonography, and spectral doppler. SIDE PERFORMED: Right FINDINGS: VESSELS IMAGED: Common Femoral Vein Deep Femoral Vein Greater Saphenous Vein * Femoral Vein Popliteal Vein Small Saphenous Vein * Proximal Calf Veins (* superficial vessels) Right Leg: Negative for DVT, Color Doppler imaging shows patency of the vessels. Spectral waveforms are within normal limits. IMPRESSION: No ultrasound evidence for deep venous thrombosis. [facility], , 06/20/2024 3:27 PM
== END | disposition home or self-care (01) ==
LOC: RADUSWWP 14:49
PROVIDERS: ATTEND Family Medicine
DX: M79.661 Pain in right lower leg (principal)

== ENCOUNTER 2024-06-26 07:41 | Day surgery (SDC) | payer MEDICARE ==
--- NOTE | 2024-06-26 07:32 | P.HPIHPCON ---
History of Present Illness H&P Date: 06/26/24 Chief Complaint: BPH This is a 74-year-old male with history of obstructive urinary symptoms, underwent a cystoscopy that showed evidence of an obstructive prostate secondary to bilateral lateral lobes enlargment , option of UroLift was discussed with him. Aware of the risk which includes but not limited to bleeding, infection, urinary incontinence, persistent symptoms. He understood all the risk and agreed to proceed Consent for Procedure: I have explained the operation/procedure to the patient, including the risks, benefits, side effects, alternative therapies (including not receiving the proposed treatment or service), the likelihood of the patient achieving his/her goals, and potential recuperation problems for the procedure/sedation/analgesia, as well as any blood products, if indicated. I also explained to the patient the risks, benefits and side effects of the alternatives, as well as the risks related to not receiving the proposed procedure, care, treatment, or services. Past Medical History Past Medical History: Chest Pain / Angina, GERD/Reflux, Hyperlipidemia, Hypertension, Sleep Apnea/CPAP/BIPAP Additional Past Medical History / Comment(s): Sarcoidosis (IN REMISSION). "Sometimes hard to urinate". Pre diabetes, RESTLESS LEGS. CPAP - does not use now History of Any Multi-Drug Resistant Organisms: None Reported Past Surgical History: Back Surgery, Heart Catheterization, Hernia Repair Additional Past Surgical History / Comment(s): RIGHT KNEE ARTHOSCOPY (MENISCUS). 09/22/16 HEART CATH (NEG).pain injections, COLONOSCOPY, UMBILICAL HERNIA REPAIR, lumbar fusion x 2 Past Anesthesia/Blood Transfusion Reactions: No Reported Reaction Additional Past Anesthesia/Blood Transfusion Reaction / Comment(s): never has had blood transfusion. NO GENERAL ANESTHESIA. Smoking Status: Never smoker - Past Family History Mother Family Medical History: CVA/TIA, Hypertension Father Family Medical History: CVA/TIA, Hypertension Brother(s) Family Medical History: Renal Disease Additional Family Medical History / Comment(s): 3 brothers kidney failure Medications and Allergies Home Medications Medication Instructions Recorded Confirmed Type Tamsulosin [Flomax] 0.4 mg PO BID 11/16/18 06/22/24 History Potassium Gluconate [Potassium 99 mg PO DAILY 08/14/19 06/22/24 History Gluconate ER] Zolpidem Tartrate [Ambien] 10 mg PO HS PRN 08/14/19 06/22/24 History hydrALAZINE HCL [Apresoline] 100 mg PO TID 08/14/19 06/22/24 History Atorvastatin [Lipitor] 40 mg PO HS 09/04/20 06/22/24 History Budesonide [Pulmicort] 0.5 mg INHALATION RT-BID PRN 09/04/20 06/22/24 History Docusate [Colace] 100 mg PO BID PRN 09/04/20 06/22/24 History Losartan [Cozaar] 100 mg PO DAILY 09/04/20 06/22/24 History Omeprazole 40 mg PO DAILY 09/04/20 06/22/24 History Pramipexole [Mirapex] 2 mg PO HS 09/04/20 06/22/24 History hydroCHLOROthiazide [Hydrodiuril] 50 mg PO QAM 09/17/21 06/22/24 History carvediloL [Coreg] 3.125 mg PO BID 06/22/24 06/22/24 History Allergies Allergy/AdvReac Type Severity Reaction Status Date / Time azathioprine [From Imuran] Allergy shakiness Verified 06/22/24 11:47 Assessment and Plan Assessment: OR for Urolift
[~2024-06-26 07:41] MED LIST changes: -LACTATED RINGERS 1,000 ML IV SCH; -ONDANSETRON 4 MG/2 ML VIAL IVP PRN; -fentaNYL (PF) 50 MCG/ML 2 ML AMP IV PRN
[2024-06-26 08:34] LABS: Glucose,Whole Blood 130 mg/dL (70-110)
[2024-06-26] MEDS: ONDANSETRON 4 MG/2 ML VIAL IVP ONE (08:46)
[2024-06-26] MEDS: DEXAMETHASONE SOD PHOSPHATE 4 MG/ML 1 ML VIAL IV ONE (08:46)
[2024-06-26] MEDS: LACTATED RINGERS 1,000 ML IV SCH (08:47)
[2024-06-26] MEDS: fentaNYL (PF) 50 MCG/ML 2 ML AMP IVP ONE (08:53)
[2024-06-26] MEDS: IV FLUID CONTINUATION 1,000 ML IV ONE ×2 (08:58→10:08)
[2024-06-26] MEDS ORDERED: PROPOFOL 10 MG/ML 20 ML VIAL IV ONE (09:12)
[2024-06-26] MEDS ORDERED: SUCCINYLCHOLINE CHLORIDE 200 MG/10 ML VIAL IV ONE (09:12)
[2024-06-26] MEDS ORDERED: fentaNYL (PF) 50 MCG/ML 2 ML AMP ONE (09:12)
[2024-06-26] MEDS ORDERED: ePHEDrine 50 MG/ML 1 ML VIAL ONE (09:12)
[2024-06-26] MEDS ORDERED: LIDOCAINE 1% INJ 10MG/ML (20 ML MDV) ONE (09:12)
[2024-06-26 10:16] VITALS: TEMP 97
[2024-06-26] MEDS: hydrALAZINE HCL 20 MG/ML 1 ML VIAL IVP STA ×2 (10:25→10:39)
--- NOTE | 2024-06-26 10:32 | P.OP ---
Date of Procedure: 06/26/24 Preoperative Diagnosis: BPH Postoperative Diagnosis: Same Procedure(s) Performed: UroLift x 8 Implants: UroLift clips Anesthesia: ALEJANDROA Surgeon: Sukh Moser Estimated Blood Loss (ml): 5 Pathology: none sent Condition: stable Disposition: PACU Indications for Procedure: This is a 74-year-old male with history of obstructive urinary symptoms, underwent a cystoscopy that showed evidence of an obstructive prostate secondary to bilateral lateral lobes enlargment , option of UroLift was discussed with him. Aware of the risk which includes but not limited to bleeding, infection, urinary incontinence, persistent symptoms. He understood all the risk and agreed to proceed Description of Procedure: Patient was brought to the operating room, general anesthesia was induced. He was prepped and draped in sterile fashion and placed in dorsal lithotomy position. Cystoscopy fitted with 20-[place] sheath was inserted per urethra, cystoscopy was performed which showed no abnormality within the bladder, of note patient had bilateral obstructive lateral lobes. Attention was then carried to the urolift implants. A total of 8 implants were placed, 3 on the left, on the right side 5 implants were fired but only 4 were placed. One of the implants had a bone strike secondary to patient's anatomy.. Implants were placed distal to the bladder neck, but proximal to the Veru. Repeat cystoscopy showed no evidence of implant perforation into the bladder. Repeat cystoscopy also demonstrated an open anterior channel within the prostate. There was no evidence of bleeding, bladder was emptied at end of the case. Patient tolerated the procedure well was taken to PACU in stable condition,
[2024-06-26] MEDS: METOPROLOL TARTRATE 5 MG/5 ML VIAL IVP STA (11:00)
[2024-06-26 12:12] VITALS: BP 165/81; PULSE 67; RESP 18
== END 2024-06-26 12:40 | disposition home or self-care (01) ==
LOC: OR 07:41
PROVIDERS: ATTEND Urology
DX: N40.0 Benign prostatic hyperplasia without lower urinary tract symptoms (principal); K21.9 Gastro-esophageal reflux disease without esophagitis; I10 Essential (primary) hypertension; G47.33 Obstructive sleep apnea (adult) (pediatric); I25.10 Atherosclerotic heart disease of native coronary artery without angina pectoris; E78.5 Hyperlipidemia, unspecified; F41.9 Anxiety disorder, unspecified; G25.81 Restless legs syndrome; D86.9 Sarcoidosis, unspecified; Z98.890 Other specified postprocedural states; Z82.49 Family history of ischemic heart disease and other diseases of the circulatory system; Z88.8 Allergy status to other drugs, medicaments and biological substances; Z99.89 Dependence on other enabling machines and devices; Z82.3 Family history of stroke; Z79.51 Long term (current) use of inhaled steroids; Z79.02 Long term (current) use of antithrombotics/antiplatelets; Z79.899 Other long term (current) drug therapy
CPT/HCPCS: 52441; 52442; L8699; J0330; J0360; J1100; J0690; J2405; J2003; J3010; J2704